=== PATIENT | male | born 1975 | race Two or more races ===

== ENCOUNTER 2024-09-18 22:33 | Inpatient (IN) | payer MEDICAID, SELFPAY ==
[2024-09-18 22:40] VITALS: BMI 32.2
--- NOTE | 2024-09-18 23:08 | PC.NURSE ---
WHILE TRIAGING PT, PT STATES NUMBNESS TO R HAND AND MOUTH AND STATES WHEN HE WALKS FAST HE SEEMS TO NANETTE TO THE RT. RENETTA. SCREW DOWN EQUAL, TONGUE MIDLINE, NO FACIAL DROOP SPEACH NORMAL. ALL STARTED YESTERDAY. DR BECKMAN CAME TO TRIAGE AN ASSESSED PT. PER DR BECKMAN NO STROKE ALERT CALLED. 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 CT ORDERED.
[2024-09-18 23:18] VITALS: BP 230/159; PULSE 94; RESP 18; TEMP 36.9; O2SAT 98
--- NOTE | 2024-09-18 23:18 | XR_ITS ---
Examination: CTA carotids with intravenous contrast CTA brain, head with intravenous contrast. 2-D sagittal, coronal reconstructions. 3-D reconstructions. Exam date and time: September 19, 2024 at 0132 hours INDICATIONS: Stroke alert, onset focal neurologic deficit headache today CTDI: vol (mGy) 11.4 DLP: (mGycm) 469 Technique: Multiple CTA axial brain, head carotid images post intravenous contrast injection 75 cc, [id number]. 2-D sagittal, coronal reconstructions. 3-D reconstructions, 3-D post processing including vascular maximum intensity projection images. Low dose protocols were performed. One or more of the following dose reduction techniques were used; automated exposure control, adjustment of the mA and/or KV according to patient size, use of iterative reconstruction technique. Findings: 9 mm left thyroid nodule No significant common carotid carotid bifurcation or internal carotid artery stenoses Dominant right vertebral artery with no significant neck arterial stenoses 90% stenosis M1 segment left middle cerebral artery, no cerebral large vessel arterial occlusions or thrombus IMPRESSION: No significant neck arterial stenoses 90% stenosis M1 segment left middle cerebral artery
--- NOTE | 2024-09-18 23:18 | XR_ITS ---
Examination: CT brain head without contrast. 2-D sagittal coronal reconstructions Date and time of exam:September 18, 2024, 2344 hours INDICATIONS: Stroke alert, onset focal neurologic deficit today CTDI: vol (mGy):50.1 DLP: (mGycm):980 Technique: Multiple CT axial sections of the brain have been obtained, 5 mm slice thickness. Contrast has not been administered. 2-D sagittal, coronal reconstructions have been obtained Low dose protocols were performed. One or more of the following dose reduction techniques were used; automated exposure control, adjustment of the mA and/or KV according to patient size, use of iterative reconstruction technique. Findings: No significant ventricular enlargement. Old appearing infarcts left basal ganglia and left occipital lobe Axial image 20 and 21 demonstrates small hyperdense areas in the left occipital lobe suspicious for acute hemorrhage No mass effect or midline shift Basal cisterns are not remarkable. Fourth ventricle is midline. Cranial vault intact. Impression: Axial images 20 and 21 demonstrates small hyperdense areas in the left occipital lobe suspicious for acute hemorrhage
--- NOTE | 2024-09-18 23:18 | EKG_ITS ---
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
--- NOTE | 2024-09-18 23:19 | XR_ITS ---
Examination: PA chest single view TECHNIQUE: Upright PA chest single view Date and time: September 18, 2024, 2324 hours INDICATIONS: High blood pressure, clinical diagnosis CVA FINDINGS: Mild prominence left ventricle Mild ectasia of thoracic aorta. No pneumonia or pulmonary edema. The osseous structures are intact IMPRESSION: Mild prominence left ventricle No pneumonia or pulmonary edema
--- NOTE | 2024-09-18 23:47 | PD.EDNEURO ---
Neuro Symptoms Deficit-RME/HPI General Chief Complaint: Neuro Symptoms/Deficit Stated Complaint: HIGH BP Time Seen by Provider: 09/18/24 23:17 Arrival date/time: 09/18/24 22:33 RME / HPI RME / HPI Narrative: Dr. Bowen?s Main ED Evaluation:? 49 y/o male with Hx of TIA presents to ED c/o tingling and numbness to the right hand and difficulty in pronunciation of words x 2 days. Patient initially came in due to elevated BP of over 200 systolic at home and tingling of the mouth. Patient also reports experiencing right hand numbness approximately 1 month ago but did not seek medical attention due to symptoms resolving after half the day. At this time, patient only reports a mild headache, right hand weakness, and some difficulty walking. Denies visual changes, tingling and numbness in lower extremities, and numbness to the face. Patient also denies fever, chills, sweats, chest pain, and shortness of breath. No other concerns or complaint expressed at this time. Related Data Allergies Allergy/AdvReac Type Severity Reaction Status Date / Time No Known Allergies Allergy Verified 09/18/24 22:56 Review of Systems Review of Systems Systems Reviewed: All systems reviewed, normal except as documented Past Medical History Past Medical History NEUROLOGIC: Positive Transient Ischemic Attacks (TIA) Social History SMOKING STATUS: Never smoker ED Exam Narrative Physical exam: GENERAL APPEARANCE: alert and oriented x 4, well-developed, well-nourished, no acute distress, speech is slowed, but no dysarthria, no aphasia. Walking slowly. VITALS: All vitals were reviewed and the pulse ox is 97% on room air, which is normal according to my interpretation. HEENT: Normocephalic, atraumatic; pupils equal, round, reactive to light; EOMI, no visual deficits; mucous membranes pink, moist; oropharynx clear NECK: Supple LUNGS: CTABL; no wheezes, no rales, no rhonchi HEART: Regular rate, regular rhythm; normal S1, S2; no murmurs ABDOMEN: non distended; normal BS; soft, no tenderness, no guarding, no rebound; no masses, no organomegaly, no hernia BACK: no CVA tenderness EXTREMITIES: atraumatic; no edema NEUROLOGIC: awake; alert and oriented x4; cranial nerves II-XII grossly intact; no motor or sensory deficits, no pronator drift, no intention tremor, steccato speech, dysmetria or dysdiadochokinesia PSYCHIATRIC: appropriate mood and affect SKIN: warm, dry, normal color; no rashes Course Quality Measures Suspected type of Stroke: Acute Ischemic Last known well (date): 09/18/24 Last know well: unknown Tenecteplase given: Reason(s) TPA not given: Stroke severity too mild (non-disabling) not given stroke Orders Category Date Time Status Bedside Blood Glucose NOW Care 09/18/24 23:18 Active COVID-19 Screening Questionnaire NOW Care 09/19/24 08:12 Active Double Cut Off Saw Operator NOW Care 09/18/24 23:18 Active Continuous Pulse Oximetry NOW Care 09/18/24 23:18 Completed Decision to Admit X1 Care 09/19/24 08:12 Completed EKG (ED ONLY) *Do not use* NOW Care 09/18/24 23:18 Completed In and Out Catheter NEEDED Care 09/18/24 23:18 Active Insert IV NOW Care 09/18/24 23:18 Active MRI Screening NOW Care 09/19/24 01:52 Active NIH Stroke Scale PRN Care 09/18/24 23:18 Active NPO NOW Care 09/18/24 23:18 Active Nurse Swallow Screen x1 Care 09/18/24 23:18 Active Consult to Neurology / Tele-Neurology Routine Cons 09/18/24 23:[address] angio stroke protocol Stat Exams 09/18/24 23:[address] stroke protocol Stat Exams 09/18/24 23:18 Completed EKG (ED Only) Stat Exams 09/18/24 23:18 Draft MR head/brain wo/w con Stat Exams 09/19/24 Completed XR chest 1V portable Stat Exams 09/18/24 23:19 Completed Alcohol, Blood Medical Stat Lab 09/18/24 23:29 Completed B-Type Natriuretic Peptide Stat Lab 09/18/24 23:29 Completed CBC Stat Lab 09/18/24 23:29 Completed Comprehensive Metabolic Panel Stat Lab 09/18/24 23:29 Completed Drug Screen,Urine Stat Lab 09/19/24 01:24 Completed Magnesium Stat Lab 09/18/24 23:29 Completed Partial Thromboplastin Time Stat Lab 09/18/24 23:29 Completed Prothrombin Time with INR Stat Lab 09/18/24 23:29 Completed Troponin I Stat Lab 09/18/24 23:29 Completed Urinalysis Stat Lab 09/19/24 01:24 Completed Nicardipine/Ns 20Mg Ivpb [Cardene Ivpb] Med 09/19/24 00:13 Discontinued 20 mg in 200 ml IV 5 mg/hr Vital Signs Vital signs: Vital Signs Temperature 98.5 F 09/18/24 23:18 Pulse Rate 94 09/18/24 23:18 Respiratory Rate 18 09/18/24 23:18 Blood Pressure 230/159 H 09/18/24 23:18 Pulse Oximetry (%) 98 09/18/24 23:18 Oxygen Delivery Method Room Air 09/18/24 23:18 Neuro Symptoms / Deficit MDM Narrative MDM Narrative:: Scribe Attestation: I, Leidy Plaza, am scribing for and in the presence of Dr. Bowen. 0000: Teleneurologist made aware of the patient?s HPI, PMHx, lab and/or radiology results. Treatment plan was discussed. Will assess patient. 0013: Teleneurologist called and reports patient had a CVA. She cannot properly score patient due to language barrier, but patient states he has difficulty in finding his words. It appears that patient had a small stroke with hemorrhagic conversion and is not a candidate for tPA. 0113: Spoke with Dr. Hogue, Neurosurgeon from [facility], and sent him the images. Will call back after reviewing of recording. 0118: There?s been a delay in getting patient?s CTA and are only now having it performed. 0149: Dr. Hogue called back after reviewing the images of Brain CT and he disagrees. There is no bleed. Advises MRI in the morning and if there is a bleed he will accept patient for transfer. 0600: Care of the patient turned over to Dr. Talbert pending MRI brain. Dr. Hogue said that if there is a bleed he will except the patient. Otherwise patient can be admitted here at [place]. Patient data External records reviewed:: [facility] previous records (No prior ED records available for review.) Clinical information provided by:: patient Social determinants that could affect healthcare access:: none Patient has the following chronic illnesses:: None reported How is presenting disease/condition affected by chronic disease/condition?: no chronic disease Evaluation data The following diagnostics were reviewed and interpreted by me:: lab results, radiology exam(s) and EKG tracing(s) Lab and/or radiology exams considered but not ordered:: None Interpretation Summary: RADIOLOGY Head/Neck CTA: Pending official radiology report. Head CT: Patient: FABI RUFFIN. Record#: [id number] Birthdate: 1975 Age/Sex: 49 / M Location: [facility] Attending Dr: Ordering Physician: Renaldo Bowen MD Date of Service: 09/18/24 Procedure(s): CT stroke protocol Accession Number(s): [id number] cc: Wilder Gallego MD; NO PRIMARY/FAMILY,PHYSICIAN; Renaldo Bowen MD~ Examination: CT brain head without contrast. 2-D sagittal coronal reconstructions Date and time of exam:September 18, 2024, 2344 hours INDICATIONS: Stroke alert, onset focal neurologic deficit today CTDI: vol (mGy):50.1 DLP: (mGycm):980 Technique: Multiple CT axial sections of the brain have been obtained, 5 mm slice thickness. Contrast has not been administered. 2-D sagittal, coronal reconstructions have been obtained Low dose protocols were performed. One or more of the following dose reduction techniques were used; automated exposure control, adjustment of the mA and/or KV according to patient size, use of iterative reconstruction technique. Findings: No significant ventricular enlargement. Old appearing infarcts left basal ganglia and left occipital lobe Axial image 20 and 21 demonstrates small hyperdense areas in the left occipital lobe suspicious for acute hemorrhage No mass effect or midline shift Basal cisterns are not remarkable. Fourth ventricle is midline. Cranial vault intact. Impression: Axial images 20 and 21 demonstrates small hyperdense areas in the left occipital lobe suspicious for acute hemorrhage Dictated By: Wilder Gallego MD Signed By: <Electronically signed by Wilder Gallego MD in OV> 09/18/24 2353 Chest X-Ray: Patient: FABI DOUGLASS Record#: [id number] Birthdate: 1975 Age/Sex: 49 / M Location: [facility] Attending Dr: Ordering Physician: Renaldo Bowen MD Date of Service: 09/18/24 Procedure(s): XR chest 1V portable Accession Number(s): [id number] cc: Wilder Gallego MD; Renaldo Bowen MD~ Examination: PA chest single view TECHNIQUE: Upright PA chest single view Date and time: September 18, 2024, 2324 hours INDICATIONS: High blood pressure, clinical diagnosis CVA FINDINGS: Mild prominence left ventricle Mild ectasia of thoracic aorta. No pneumonia or pulmonary edema. The osseous structures are intact IMPRESSION: Mild prominence left ventricle No pneumonia or pulmonary edema Dictated By: Wilder Gallego MD Signed By: <Electronically signed by Wilder Gallego MD in OV> 09/18/24 2330 LABS Hematology: Hgb 17, [place] # 1.1, Immature Gran # 0.02. Chemistry: Glucose 279, Troponin I 0.084, BNP 264. Urine: Protein 1+, Glucose 4+. Toxicology: Negative. Medications / Prescriptions Medications or Prescriptions considered but not ordered:: None Medication administrations:: Medication Administration History Acetaminophen (Acetaminophen 325 Mg Tablet) 650 mg PO Q6H PRN PRN Reason: Fever >100.3 or pain 1-3 Stop: 10/19/24 08:33 Amlodipine Besylate (Amlodipine Besylate 5 Mg Tablet) 10 mg PO QDAY MARTI Stop: 10/19/24 11:29 Last Admin: 09/19/24 12:30 Dose: 10 mg Documented By: BENITA Atorvastatin Calcium (Atorvastatin Calcium 20 Mg Tablet) 40 mg PO HS MARTI Stop: 10/19/24 20:59 Last Admin: 09/19/24 20:12 Dose: 40 mg Documented By: BECCA Clopidogrel Bisulfate (Clopidogrel Bisulfate 75 Mg Tablet) 75 mg PO QDAY [facility] Stop: 10/19/24 11:59 Last Admin: 09/19/24 12:30 Dose: 75 mg Documented By: BENITA Dextrose (Dextrose 50%-Water Inj 50 Ml Syringe) 25 ml IV Q15MIN PRN PRN Reason: BG 50-70 responsive npo pt Stop: 10/19/24 16:13 Dextrose (Dextrose 50%-Water Inj 50 Ml Syringe) 50 ml IV Q15MIN PRN PRN Reason: BG <50 OR BG <70 & pt unresponsive Stop: 10/19/24 16:13 Enoxaparin Sodium (Enoxaparin Sod Inj 40 Mg/0.4 Ml Syringe) 40 mg SC QDAY [facility] Stop: 10/04/24 08:59 Glucagon (Glucagon Inj 1 Mg Vial) 1 mg IM Q15MIN PRN PRN Reason: BG <70, and no IV access Insulin Glargine (Insulin Glargine (Lantus) 5 Unit/0.05 Ml (Per 5 Units)) 15 unit SC [facility] Stop: 10/19/24 20:59 Last Admin: 09/19/24 20:16 Dose: 15 unit Documented By: BECCA Co-signed By: ENMANUEL Insulin Human Lispro (Insulin Lispro (Admelog) 1 Unit/0.01 Ml Unit) 0 unit SC [facility]; Protocol Stop: 10/19/24 16:59 Last Admin: 09/19/24 18:21 Dose: 3 unit Documented By: BENITA Co-signed By: EMILIANO Labetalol HCl (Labetalol Inj 5 Mg/Ml Vial 20 Ml) 10 mg IVP Q4H PRN PRN Reason: If SBP>170 or DBP>100 Stop: 10/19/24 16:09 Lisinopril (Lisinopril 2.5 Mg Tablet) 20 mg PO QDAY [facility] Stop: 10/20/24 08:59 Ondansetron HCl (Ondansetron Inj 2 Mg/Ml Inj 2 Ml) 4 mg IVP Q6H PRN; Protocol PRN Reason: NAUSEA OR VOMITING Stop: 10/19/24 08:33 Sennosides (Senna Tablet) 1 tab PO QDAY PRN; Protocol PRN Reason: constipation Stop: 10/19/24 08:33 Discontinued Medications Aspirin (Aspirin Ec 81 Mg Tabec) 81 mg PO QDAY MARTI Stop: 10/19/24 11:59 Last Admin: 09/19/24 12:30 Dose: 81 mg Documented By: BENITA Nicardipine/Sodium Chloride (Cardene Ivpb) 20 mg in 200 mls @ 50 mls/hr IV .Q4H PRN; Protocol PRN Reason: PER PROTOCOL Stop: 10/19/24 00:12 Last Titration: 09/19/24 08:14 Dose: 3 mg/hr, 30 mls/hr Documented By: Titration: 09/19/24 07:12 Dose: 3 mg/hr, 30 mls/hr Documented By: Admin: 09/19/24 02:48 Dose: 3 mg/hr, 30 mls/hr Documented By: Titration: 09/19/24 02:41 Dose: Infused Documented By: Titration: 09/19/24 02:05 Dose: 15 mg/hr, 150 mls/hr Documented By: Titration: 09/19/24 01:45 Dose: 12.5 mg/hr, 125 mls/hr Documented By: Titration: 09/19/24 01:10 Dose: 10 mg/hr, 100 mls/hr Documented By: Titration: 09/19/24 01:05 Dose: 7.5 mg/hr, 75 mls/hr Documented By: Admin: 09/19/24 01:00 Dose: 5 mg/hr, 50 mls/hr Documented By: ADDY Labetalol HCl (Labetalol Inj 5 Mg/Ml Vial 20 Ml) 10 mg IVP Q2HR PRN PRN Reason: If SBP>170 or DBP>100, hold if Stop: 10/19/24 11:59 Last Admin: 09/19/24 13:18 Dose: 10 mg Documented By: BENITA Labetalol HCl (Labetalol Inj 5 Mg/Ml Vial 20 Ml) 10 mg IVP Q2HR PRN PRN Reason: If SBP>220 or DBP>120 Stop: 10/19/24 11:59 Labetalol HCl (Labetalol Inj 5 Mg/Ml Vial 20 Ml) 10 mg IVP Q2HR PRN PRN Reason: If SBP>170 or DBP>100 Stop: 10/19/24 11:59 Last Admin: 09/19/24 18:20 Dose: 10 mg Documented By: BENITA Labetalol HCl (Labetalol Inj 5 Mg/Ml Vial 20 Ml) 10 mg IVP X1 ONE Stop: 09/19/24 20:05 Last Admin: 09/19/24 20:07 Dose: 10 mg Documented By: BECCA Lisinopril (Lisinopril 2.5 Mg Tablet) 10 mg PO QDAY MARTI Stop: 10/20/24 08:59 Lisinopril (Lisinopril 2.5 Mg Tablet) 10 mg PO X1 ONE Stop: 09/19/24 20:37 Last Admin: 09/19/24 20:41 Dose: 10 mg Documented By: BECCA Lisinopril (Lisinopril 2.5 Mg Tablet) 10 mg PO X1 ONE Stop: 09/19/24 22:04 Last Admin: 09/19/24 22:10 Dose: 10 mg Documented By: VAUGHN See above if any Consultations Consultation(s) initiated? (list below): Yes Diagnosis Neuro Differential Diagnosis: delirium, subarachnoid hemorrhage, peripheral neuropathy, cerebrovascular accident and transient cerebral ischemia Most likely diagnosis given after review of the tests above:: See clinical impression below Admission Indicated Admission indicated?: not indicated Explain why admission is indicated or not indicated:: Pending MRI. Admission Request Was there a request for admission?: No Disposition Plan Disposition Plan: other (specify) (Pending MRI. Signed out to Dr. Talbert.) Critical Care Time Critical Care Time Critical Care Time: Yes Total Critical Care Time (min.): 40 Attestation: The high probability of sudden, clinically significant deterioration in the patient?s condition required the highest level of my preparedness to intervene urgently. The services I provided to this patient were to treat and/or prevent clinically significant deterioration. Services included the following: chart data review, reviewing nursing notes and/or old charts, documentation time, information resource consultant collaboration regarding findings and treatment options, medication orders and management, direct patient care, vital sign assessments and ordering, interpreting and reviewing diagnostic studies and lab tests. Aggregate critical care time includes only time during which I was engaged in work directly related to the patient?s care, as described above, whether at bedside or elsewhere in the Emergency Department. It did not include time spent performing other reported procedures or the services of residents, students, nurses or physician assistants. Discharge Plan Plan Patient Disposition: Admit Acute Care w/in Hospital Problem List Clinical Impression: Cerebrovascular accident
[2024-09-19] VITALS (36 sets, daily range): BP systolic 138–207; BP diastolic 03–129; PULSE 77–113; RESP 18–98; TEMP 36.7–37.5; O2SAT 94–99
--- NOTE | 2024-09-19 | XR_ITS ---
Examination: MRI of brain without intravenous contrast. MRI brain with intravenous contrast. Date and time of exam:September 19, 2024 0701 hours INDICATIONS: Stroke alert last night, numbness in the right hand difficulty in advancing words 2 days, high blood pressure Technique: Multiple axial and sagittal images of the brain to been obtained. Siemens high-resolution 1.52 Vanita short bore scanner utilized. Sagittal sections, T1 weighted images, TR 500, TE 14, are performed. Axial sections proton-density and T2-weighted images have been obtained. Inversion recovery axial images, TR 9260, TE 111, TR 2500. Diffusion weighted images, axial sections, TR 4800, TE 128, B value 1000. Axial sections, ADC map, TR 4800, TE 128. Axial and coronal images were also obtained post 20 cc gadolinium administered intravenously. Findings:: Enlargement of the sella turcica is not present. The optic chiasm and infundibular stalk are not remarkable. There is no localized enlargement of the medulla or vlad. Fourth ventricle and cerebellar tonsils appear normal in position. No subacute area of hemorrhage density is seen. Fourth ventricle is midline. Mass in the cerebellopontine angle region is not evident. 7th and 8th nerve complexes exhibit symmetry Globes are symmetrical Orbital musculature including medial lateral rectus muscles do not exhibit abnormality Increased white matter signal is significant Effacement of the cortical sulcal markings is not identified. Mass effect upon the ventricular system is not identified. Diffusion-weighted images demonstrate foci of restricted diffusion in the left occipital lobe, left caudate nucleus, left parietal lobe Contrast images demonstrate foci of enhancement in the left occipital lobe and small areas left parietal lobe Impression: Multiple acute infarcts in the left occipital lobe, left caudate nucleus, left parietal lobe
[2024-09-19 00:11] LABS: Basophils # (Auto) 0.1 Thou/mm3 (0.0-0.2); Basophils % (Auto) 1 % (0-2.5); Eosinophils # (Auto) 0.4 Thou/mm3 (0.0-0.5); Eosinophils % (Auto) 4 % (0-10); Hematocrit 48.1 % (41.0-53.0); Immature Granulocytes % (Auto) 0 % (0-0); Immature Granulocytes Auto 0.02 Thou/mm3 (0.00-0.00); Lymphocytes # (Auto) 3.1 Thou/mm3 (1.0-4.8); Lymphocytes % (Auto) 31 % (10-50); Mean Corpuscular HGB Conc 35.3 g/dl (31.0-37.0); Mean Corpuscular Hemoglobin 30.7 pg (25.0-35.0); Mean Corpuscular Volume 87 fL (80-100); Monocytes # (Auto) 1.1 Thou/mm3 (0.0-0.8); Monocytes % (Auto) 11 % (0-12); Neutrophils # (Auto) 5.3 Thou/mm3 (1.8-7.7); Neutrophils % (Auto) 53 % (37-80); Nucleated Red Blood Cell % 0 /100 WBC (0); Platelet Count 281 Thou/mm3 (140-440); RDW Standard Deviation 38.2 fL (35.1-43.9); Red Blood Count 5.53 Miln/mm3 (4.50-5.90)
[2024-09-19 00:19] LABS: B-Type Natriuretic Peptide 264 pg/mL (0-100)
[2024-09-19 00:22] LABS: Alanine Aminotransferase 26 U/L (10-49); Albumin, Serum 4.3 gm/dL (3.5-5.0); Albumin/Globulin Ratio 1.4 (1.2-2.2); Alcohol, Blood Medical < 3.0 mg/dL (0-10.0); Alkaline Phosphatase 89 U/L (46-116); Anion Gap 10 (7-16); Aspartate Amino Transferase 22 U/L (0-34); BUN/Creatinine Ratio 12 Ratio (12-20); Bilirubin,Total 0.5 mg/dL (0.3-1.2); Blood Urea Nitrogen 13 mg/dL (9-23); Calcium 9.1 mg/dL (8.3-10.6); Calcium (Corrected) 9.1 mg/dL (8.5-10.1); Chloride 103 mMol/L (98-107); Creatinine (Component) 1.1 mg/dL (0.6-1.3); Estimated Creatinine Clearance 94.6 mL/min (>60); Glucose 279 mg/dL (74-106); Magnesium 1.8 mg/dL (1.6-2.6); Osmolality,Calculated 289 (275-295); Potassium 3.5 mMol/L (3.4-5.1); Sodium 140 mMol/L (136-145); Total Protein 7.3 gm/dL (5.7-8.2); eGFR > 60 See Note
[2024-09-19 00:43] LABS: Troponin I 0.084 ng/mL (0.0-0.045)
--- NOTE | 2024-09-19 00:51 | PD.TNEURO ---
Tele Neuro Consultation Consultation Date 09/19/24 Most Recent Vital Signs Last Vital Signs Temp 98.6 F 09/19/24 00:20 Pulse 97 09/19/24 00:38 Resp 18 09/19/24 00:20 BP 204/126 H 09/19/24 00:20 Pulse Ox 97 09/19/24 00:20 O2 Del Method Room Air 09/19/24 00:20 Laboratory-Coagulation Panel PT 11.0 Seconds (9.0-12.2) 09/18/24 23:29 INR 1.0 (0.9-1.3) 09/18/24 23:29 APTT 26.0 Seconds (22.0-36.0) 09/18/24 23:29 Consultation Narrative [facility] Tele[facility]urology Consult Services Date of :???1975 Date of Service:???09/18/2024 23:27:13 Diagnosis:?R20.0 - Anesthesia of skin Impression: This is a 49 year old man with history of hypertension here with right hand numbness and difficulty speaking, starting 2 days prior to presentation, noted to have an area of hyperdensity on CT, interpreted as hemorrhage by radiology. The patient is not a candidate for IV thrombolytics given CT findings and last known well. CTA head and neck is pending. Recommend MRI brain with and without contrast/ MRV when/ if feasible Recommendation: Diagnostic Studies: ?CTA head and neck with contrast Laboratory Studies:? INR/PT ? aPTT? CBC Medications:? Hold?antiplatelet?therapy/NSAIDS/Anticoagulation Nursing Recommendations: ? Telemetry, IV Fluids?Avoid dextrose containing fluids, Maintain euglycemia ? Head of bed 30 degrees Consultations: ? Recommend Speech therapy if failed dysphagia screen ? Physical therapy/Occupational therapy DVT Prophylaxis: ? SCDs Disposition: ? Neurology will Follow Additional Recommendation: SBP<160 Metrics: Last Known Well: Unknown Dispatch Time: 09/18/2024 23:27:13 Arrival Time: 09/18/2024 22:33:00 Initial Response Time: 09/18/2024 23:39:54Symptoms: right hand numbness difficulty speaking. Initial patient interaction: 09/18/2024 23:45:00 NIHSS Assessment Completed: 09/18/2024 23:54:00Patient is not a candidate for Thrombolytic. Thrombolytic Medical Decision: 09/18/2024 23:54:00Patient was not deemed candidate for Thrombolytic because of following reasons: LKW outside 4.[address] Head: I personally reviewed all the CT images that were available to me and it showed: area hypodensity left occipital region, with an adjacent area of hyperdensity, radiology interpreted this as possible hemorrhage Primary Provider Notified of Diagnostic Impression and Management Plan on: 09/19/2024 00:17:58 History of Present Illness:Patient is a 49 year old Male. Patient was brought by private transportation with symptoms of right hand numbness difficulty speaking. This is a 49 year old man with history of hypertension here with right hand numbness and difficulty speaking, starting 2 days prior to presentation. The patient is not on anticoagulation. There was no clear precipitant and no clear exacerbating or alleviating factors Past Medical History: ?Hypertension Other PMH:? hypertension Medications: No Anticoagulant use? No Antiplatelet use Reviewed EMR for current medications Allergies:? Reviewed Social History: Drug Use: No Family History: There is no family history of premature cerebrovascular disease pertinent to this consultation ROS : 14 Points Review of Systems was performed and was negative except mentioned in HPI. Past Surgical History: There Is No Surgical History Contributory To Today?s Visit Examination: BP(230/159),?Pulse(94),?Blood Glucose(247) 1A: Level of Consciousness - Alert; keenly responsive?+ 0 1B: Ask Month and Age - Both Questions Right?+ 0 1C: Blink Eyes & Squeeze Hands - Performs Both Tasks?+ 0 2: Test Horizontal Extraocular Movements - Normal?+ 0 3: Test Visual Frias - No Visual Loss?+ 0 4: Test Facial Palsy (Use Grimace if Obtunded) - Normal symmetry?+ 0 5A: Test Left Arm Motor Drift - No Drift for 10 Seconds?+ 0 5B: Test Right Arm Motor Drift - No Drift for 10 Seconds?+ 0 6A: Test Left Leg Motor Drift - No Drift for 5 Seconds?+ 0 6B: Test Right Leg Motor Drift - Drift, but doesn't hit bed?+ 1 7: Test Limb Ataxia (FNF/Heel-Aponte) - No Ataxia?+ 0 8: Test Sensation - Normal; No sensory loss?+ 0 9: Test Language/Aphasia - Normal; No aphasia?+ 0 10: Test Dysarthria - Normal?+ 0 11: Test Extinction/Inattention - No abnormality?+ 0 NIHSS Score:?1 ICH Score: 0 NIHSS Text :?subtle RLE drift; had complained of right hand numbness, able to sense light touch equally on exam; stated he had trouble speaking- was able to name items- Helio Coma Score:13-15 (0) Age >= 80:No (0) ICH volume >= 30mL:No (0) Intraventricular hemorrhage:No (0) Infratentorial origin of hemorrhage:No (0) Pre-Morbid Modified Singh Scale:0 Points = No symptoms at all This consult was conducted in real time using interactive audio and video technology. Patient was informed of the technology being used for this visit and agreed to proceed. Patient located in hospital and provider located at home/office setting. Due to the immediate potential for life-threatening deterioration due to underlying acute neurologic illness, I spent 44 minutes providing critical care. This time includes time for face to face visit via telemedicine, review of medical records, imaging studies and discussion of findings with providers, the patient and/or family. Dr Lucia Valentino [facility] For Inpatient follow-up with [facility] physician please call [facility] at . As we are not an outpatient service for any post hospital discharge needs please contact the hospital for assistance. If you have any questions for the [facility] physicians or need to reconsult for clinical or diagnostic changes please contact us via [facility] at .
[2024-09-19] MEDS: NICARDIPINE/NS 20MG IVPB 20 MG/200 ML BAG 50 MG IV (01:00)
[2024-09-19 01:35] LABS: Collection Type, Urine Clean Catch
--- NOTE | 2024-09-19 01:41 | PC.NURSE ---
pt brought back from ct at this time.
[2024-09-19 01:44] LABS: Bilirubin,Urine Negative (Negative); Blood,Urine Negative (Negative); Clarity,Urine Clear (Clear/Hazy); Color,Urine Lt-Yellow (Lt Yel-Yel); Glucose, Urine 4+ (Negative); Ketones,Urine Negative (Negative); Leukocyte Esterase,Urine Negative (Negative); Nitrite,Urine Negative (Negative); PH,Urine 6.5 (5.0-7.0); Protein,Urine 1+ (Neg - Trace); RBC,Urine < 1 /hpf (0-3); Squamous Epithelial Cell,Urine 1 /hpf (0-5); Urobilinogen,Urine Negative mg/dL (0.0-1.0); WBC,Urine 2 /hpf (0-5)
[2024-09-19 01:58] LABS: Amphetamine/Methamp Scrn,U Negative (Negative); Barbiturate Screen,Urine Negative (Negative); Benzodiazepines Screen,Urine Negative (Negative); Benzoylecgonine Screen, Ur Negative (Negative); Fentanyl Screen,Urine Negative (Negative); Opiate Screen,Urine Negative (Negative); THC Screen,Urine Negative (Negative)
--- NOTE | 2024-09-19 02:31 | PRELIM_ITS ---
CT angiogram of the head and neck with intravenous contrast (axial sections with sagittal and coronal reformats). September 19, 2024 0132 hours Clinical History: Focal neuro deficit, stroke suspected Comparison: None Findings: There is a classic three-vessel aortic arch configuration. Atherosclerotic plaque along the cervical carotid circulation results in less than 50% stenosis per NASCET criteria which is [id number]. Cervical right vertebral artery is dominant. The cervical vertebral arteries are intact without flow-limiting stenosis. There is no aneurysm or dissection of the cervical carotid or cervical vertebral circulation. The intracranial vertebral arteries are intact without flow-limiting stenosis. The basilar artery is intact without flow-limiting stenosis. The posterior cerebral arteries are intact without flow-limiting stenosis. The internal carotid arteries are intact without flow-limiting stenosis. There is severe flow-limiting stenosis within the M1 segment of the left MCA. The anterior cerebral arteries and right middle cerebral artery are intact without flow- limiting stenosis. There is no intracranial aneurysm or AVM. Impression: No flow-limiting stenosis, aneurysm or dissection of the cervical carotid or cervical vertebral circulation. 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 Otherwise no intracranial major proximal vessel occlusion, flow-limiting stenosis, aneurysm or AVM. Consider CT perfusion study for further evaluation. Discussion Details: Results verbally communicated to : Dr. Bowen at 02:22 AM 09/19/2024 Report Electronically Signed By: Micah Catherine 09/19/2024 2:30:44 AM [EST]
[2024-09-19] MEDS: NICARDIPINE/NS 20MG IVPB 20 MG/200 ML BAG 30 MG IV (02:48)
--- NOTE | 2024-09-19 06:44 | EDNOTE_ITS ---
Emergency Room Addendum Addendum Narrative: 0600: Care assumed from Dr. Bowen, the previous shift emergency physician. Past medical, surgical, social and family history reviewed. Vitals and home medications reviewed. I will assume the care of the patient at this time, pending MRI and final disposition. Please refer to the emergency department record for history and examination from initial visit.?The following addendum documentation note is intended to reflect any pending information, findings, or radiology results not included in the patient?s initial chart. 0805: We reviewed all the results, analysis, and treatment plans. Patient is amenable to admission. 0808: I spoke with resident Dr. Berg working with Dr. Albarran. Discussed patients PMHx, HPI, ED course, exam findings, labs, and radiology results. The hospitalist agree to accept the patient for admission. RADIOLOGY Ordering Physician: Renaldo Bowen MD Date of Service: 09/19/24 Procedure(s): MR head/brain wo/w con Accession Number(s): [id number] cc: Wilder Gallego MD; NO PRIMARY/FAMILY,PHYSICIAN; Renaldo Bowen MD~ Examination: MRI of brain without intravenous contrast. MRI brain with intravenous contrast. Date and time of exam:September 19, 2024 0701 hours INDICATIONS: Stroke alert last night, numbness in the right hand difficulty in advancing words 2 days, high blood pressure Technique: Multiple axial and sagittal images of the brain to been obtained. Siemens high-resolution 1.52 Vanita short bore scanner utilized. Sagittal sections, T1 weighted images, TR 500, TE 14, are performed. Axial sections proton-density and T2-weighted images have been obtained. Inversion recovery axial images, TR 9260, TE 111, TR 2500. Diffusion weighted images, axial sections, TR 4800, TE 128, B value 1000. Axial sections, ADC map, TR 4800, TE 128. Axial and coronal images were also obtained post 20 cc gadolinium administered intravenously. Findings:: Enlargement of the sella turcica is not present. The optic chiasm and infundibular stalk are not remarkable. There is no localized enlargement of the medulla or vlad. Fourth ventricle and cerebellar tonsils appear normal in position. No subacute area of hemorrhage density is seen. Fourth ventricle is midline. Mass in the cerebellopontine angle region is not evident. 7th and 8th nerve complexes exhibit symmetry Globes are symmetrical Orbital musculature including medial lateral rectus muscles do not exhibit abnormality Increased white matter signal is significant Effacement of the cortical sulcal markings is not identified. Mass effect upon the ventricular system is not identified. Diffusion-weighted images demonstrate foci of restricted diffusion in the left occipital lobe, left caudate nucleus, left parietal lobe Contrast images demonstrate foci of enhancement in the left occipital lobe and small areas left parietal lobe Impression: Multiple acute infarcts in the left occipital lobe, left caudate nucleus, left parietal lobe Dictated By:Wilder Gallego MD Signed By:<Electronically signed by Wilder Gallego MD in OV>09/19/24 0759
--- NOTE | 2024-09-19 07:14 | PC.NURSE ---
Patient transport to MRI via wheelchair. Per [facility] in shop service technician, no available MRI medication IV pump for nicardipine drip. Ok per Dr Talbert to temporarily hold drip to obtain MRI imaging.
--- NOTE | 2024-09-19 08:25 | PC.NURSE ---
Ok per Dr Talbert to discontinue Nicardipine gtt, Ok for permissive HTN for patient due to +MRI for stroke.
--- NOTE | 2024-09-19 08:39 | ECHO_ITS ---
Transthoracic Echo Report Ht (in): 69 Wt (lb): 220 Exam Location: Echo Lab Status: Inpatient Policy Issue Clerk: Yocasta Biswas Indications: Procedure Performed: BP: 189 / 119 HR: 104 Technical Quality: Technically Difficult Study MEASUREMENTS (Male / Female) Normal Values 2D ECHO LV Diastolic Diameter PLAX 4.4 cm 4.2 - 5.9 / 3.9 - 5.3 cm LV Systolic Diameter PLAX 3.6 cm IVS Diastolic Thickness 1.0 cm 0.6 - 1.0 / 0.6 - 0.9 cm LVPW Diastolic Thickness 0.8 cm 0.6 - 1.0 / 0.6 - 0.9 cm LV Relative Wall Thickness 0.4 LVOT Diameter 2.4 cm LA Volume Index 31.1 cm?/m? 16 - 28 cm?/m? Ascending Aorta Diameter 3.3 cm DOPPLER AV Peak Velocity 130.0 cm/s AV Peak Gradient 6.8 mmHg LVOT Peak Velocity 72.8 cm/s LVOT Peak Gradient 2.1 mmHg AV Area Cont Eq pk 2.5 cm? MV Area PHT 4.2 cm? Mitral E Point Velocity 82.0 cm/s Mitral A Point Velocity 87.8 cm/s Mitral E to A Ratio 0.9 LV E' Lateral Velocity 7.7 cm/s Mitral E to LV E' Lateral Ratio 10.6 LV E' Septal Velocity 5.1 cm/s Mitral E to LV E' Septal Ratio 16.0 PV Peak Velocity 105.0 cm/s PV Peak Gradient 4.4 mmHg FINDINGS Left Ventricle Normal left ventricular size and wall thickness. Global left ventricular systolic function is moderately decreased with an estimated EF of 35-40%. There is grade I diastolic dysfunction of the left ventricle (impaired relaxation pattern). Right Ventricle The right ventricle is normal in size. Right ventricular systolic function is mildly reduced. Left Atrium The left atrial cavity size is mildly increased. Right Atrium The right atrium is normal by two-dimensional imaging, color flow and Doppler imaging with no structural abnormalities, no thrombus formation present. Atrial Septum The interatrial septum appears normal with no evidence of a shunt. Aorta The aorta is normal by two-dimensional, color flow and Doppler interrogation. Mitral Valve The mitral valve is normal by two-dimensional, color flow and Doppler interrogation. There is no significant mitral valve regurgitation, stenosis or prolapse. Aortic Valve The aortic valve is trileaflet and normal by two-dimensional, color flow and Doppler interrogation. There is no significant aortic valve regurgitation. Tricuspid Valve The tricuspid valve is normal by two-dimensional, color flow and Doppler interrogation. There is no significant tricuspid valve regurgitation. Pulmonic Valve The pulmonic valve is not well visualized. There is no significant pulmonic valve regurgitation. Vessels The pulmonary artery appears normal. The inferior vena cava pulmonary and hepatic veins are not well visualized. Pericardium The pericardium is not well visualized. CONCLUSIONS Indications: Suspect Embolic Stroke Normal LV size and wall thickness. Estimated EF of 35-40%. Grade I diastolic dysfunction. RV systolic function is mildly reduced. KELLY is mildly increased. No pericaredial effusion. Nicky Flowers (Electronically Signed) Final Date: 20 September 2024 12:01
--- NOTE | 2024-09-19 09:36 | PC.NURSE ---
Patient has been awake, alert and oriented, ambulatory, up to us the restroom. Patient speaks setswana. Patient is able to verbalize needs. 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 Patient states he lives alone in a trailer and his neighbor brought him in to be evaluated. Patient updated with plan of admission.
--- NOTE | 2024-09-19 11:15 | PC.CC ---
Patient is a 49 year old male who presents to the Emergency Department for an acute stroke. 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 Limits of confidentiality were discussed. Patient appears to be alert and oriented to self, location and situation. Patient was pleasant and engaged in initial assessment. Patient confirmed information on demographics. Patient is currently unemployed and lives alone. Patient stated his surrogate decision maker is his friend Ethel Dick ([phone]). Patient does not currently have a primary care provider. Pharmacy of choice is [facility] on [address]. Patient states he is able to ambulate independently and is independent with his ADL's. Patient denies use of DME at home. Upon discharge patient plans to return home. vp celebrity services will follow up with any discharge needs.
--- NOTE | 2024-09-19 11:22 | PC.NURSE ---
RN reported to Pili Sanchez patient will transfer to room 258.
[2024-09-19] MEDS: amLODIPine BESYLATE 5 MG TABLET 10 MG PO (12:30)
[2024-09-19] MEDS: CLOPIDOGREL BISULFATE 75 MG TABLET PO (12:30)
[2024-09-19] MEDS: ASPIRIN EC 81 MG TABEC PO (12:30)
--- NOTE | 2024-09-19 13:06 | ESHP_ITS ---
<Statement entered by Leif Berg MD - 09/20/24 07:14> I discussed with and supervised the news internship physician involved in the care of this patient. Patient assessment and plan was discussed with entire medicine team, including my attending. I agree with the assessment and plan as documented by news internship doctor. Patient care was discussed with my attending physician Dr. Deion Berg, PGY-2 Documentation for date of: 09/19/24 HPI History of Present Illness Chief complaint: right arm weakness, difficulty finding words History of present illness: The patient is a 49-year-old male with previous medical hostiry of TIA who came into the hospital on 09/18/2024 with complaints of right hand weakness, difficulty finding words. He also reports that he measured his blood pressure and his systolic blood pressure was over 200. In the ED his blood pressure was 230/159, heart rate 94, respiratory rate 18, afebrile, saturating well on room air. Labs were significant for hemoglobin 17.0, troponin 0.084, BNP 264, glucose 279. Head CT was suspicious for acute hemorrhage. Head and neck CTA showed 90% stenosis of M1 segment left middle cerebral artery. Chest x-ray was negative for pneumonia or pulmonary edema. Teleneuro was consulted, due to the concern for intracranial bleeding patient was not started on antiplatelet therapy and was not a candidate for TNK. Dr. Hogue, neurosurgeon at [facility] was consulted, reviewed the imaging, did not recommend to transfer. MRI of the brain showed multiple acute infarcts in the left occipital lobe, left caudate nucleus, left parietal lobe. Patient denies taking testosterone. Social history: Denies smoking, alcohol use. Lives in a trailer. 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 Medications: Denies Surgeries: Denies Allergies: Denies Patient was admitted for acute stroke workup and management. Review of Systems Review of Systems Systems Reviewed: All systems reviewed, normal except as documented Past Medical History Past Medical History NEUROLOGIC: Positive Transient Ischemic Attacks (TIA) Social History SMOKING STATUS: Never smoker Exam Vital Signs Temp Pulse Resp BP Pulse Ox O2 Del Method 98.6 F 96 18 188/114 H 99 Room Air 09/19/24 10:05 09/19/24 12:30 09/19/24 10:05 09/19/24 12:30 09/19/24 12:27 09/19/24 12:27 Narrative Exam Gen: Well-developed and well-nourished. HEENT: NCAT, PERRLA, EOMI, MMM, anicteric conjunctivae. CVS: normal S1 and S2. RRR. No M/R/G. Resp: CTA B/L. No rhonchi, rales, crackles or wheezing. Abd: soft, non-tender, non-distended. BS+ in all 4 quadrants. MSK: Good ROM in BUE & BLE. No edema or rash. Neuro: Right sided facial droop.Mild weakness in RUE, strength 5/5 in all other extremities. Alert and oriented x3. Psych: appropriate mood and affect. Results: Labs 09/20/24 05:15 09/20/24 05:15 Labs: Short CBC 09/18/24 Range/Units 23:29 WBC 10.0 (3.8-10.6) Thou/mm3 Hgb 17.0 H (13.5-16.0) g/dL Hct 48.1 (41.0-53.0) % Plt Count 281 (140-440) Thou/mm3 BMP 09/18/24 23:29 Sodium 140 Potassium 3.5 Chloride 103 Carbon Dioxide 27.0 BUN 13 Creatinine 1.1 Glucose 279 H Calcium 9.1 Cardiac Enzymes 09/18/24 Range/Units 23:29 Troponin I 0.084 H* (0.0-0.045) ng/mL Liver Function 09/18/24 Range/Units 23:29 Total Bilirubin 0.5 (0.3-1.2) mg/dL AST 22 (0-34) U/L ALT 26 (10-49) U/L Alkaline Phosphatase 89 (46-116) U/L Albumin 4.3 (3.5-5.0) gm/dL Urine 09/19/24 Range/Units 01:24 Urine Color Lt-Yellow (Lt Yel-Yel) Urine Clarity Clear (Clear/Hazy) Urine pH 6.5 (5.0-7.0) Ur Specific Dudley 1.020 (1.001-1.035) Urine Protein 1+ A (Neg - Trace) Urine Glucose (UA) 4+ A (Negative) Quality Measures Quality Measures stroke Suspected type of Stroke: Acute Ischemic Last known well (date): 09/18/24 Last known well (time): 23:00 Tenecteplase given: Reason(s) Tenecteplase not given: Outside the time window not given Rehab services: PT evaluation ordered and Speech Language Pathology eval ordered VTE Prophylaxis: pharmaceutical Antithrombotic by day 2:: ordered Statin ordered: <75 y/o high intensity dose Anticoagulation ordered for A-fib or flutter (current or hx): not indicated Medications Home Medications and Allergies Allergies Allergy/AdvReac Type Severity Reaction Status Date / Time No Known Allergies Allergy Verified 09/18/24 22:56 Visit Medications Acetaminophen (Acetaminophen 325 Mg Tablet) 650 mg PO Q6H PRN PRN Reason: Fever >100.3 or pain 1-3 Stop: 10/19/24 08:33 Amlodipine Besylate (Amlodipine Besylate 5 Mg Tablet) 10 mg PO QDAY [facility] Stop: 10/19/24 11:29 Last Admin: 09/19/24 12:30 Dose: 10 mg Aspirin (Aspirin Ec 81 Mg Tabec) 81 mg PO QDAY [facility] Stop: 10/19/24 11:59 Last Admin: 09/19/24 12:30 Dose: 81 mg Atorvastatin Calcium (Atorvastatin Calcium 20 Mg Tablet) 40 mg PO HS [facility] Stop: 10/19/24 20:59 Clopidogrel Bisulfate (Clopidogrel Bisulfate 75 Mg Tablet) 75 mg PO QDAY [facility] Stop: 10/19/24 11:59 Last Admin: 09/19/24 12:30 Dose: 75 mg Labetalol HCl (Labetalol Inj 5 Mg/Ml Vial 20 Ml) 10 mg IVP Q2HR PRN PRN Reason: If SBP>170 or DBP>100, hold if Stop: 10/19/24 11:59 Ondansetron HCl (Ondansetron Inj 2 Mg/Ml Inj 2 Ml) 4 mg IVP Q6H PRN; Protocol PRN Reason: NAUSEA OR VOMITING Stop: 10/19/24 08:33 Sennosides (Senna Tablet) 1 tab PO QDAY PRN; Protocol PRN Reason: constipation Stop: 10/19/24 08:33 Discontinued Medications Nicardipine/Sodium Chloride (Cardene Ivpb) 20 mg in 200 mls @ 50 mls/hr IV .Q4H PRN; Protocol PRN Reason: PER PROTOCOL Stop: 10/19/24 00:12 Last Titration: 09/19/24 08:14 Dose: 3 mg/hr, 30 mls/hr Assessment & Plan Plan The patient is a 49-year-old male with PMH of TIA who came into the hospital on 09/18/2024 with complaints of right hand weakness, difficulty finding words. #Acute stroke #Erythrocytosis, etiology unknown Ddx:embolic vs atherothrombotic stroke Patient has been having symptoms for 2 days. Plan: - aspirin 81 mg for 21 day - plavix 75 mg for 21 day - atorvastatin 40 mg qday - HOB elevation 30 degrees - Neuro checks q4hr - PT, Speech therapy assessment - hypercoag panel - EPO, JAK2 mutation - telemetry - HbA1, TSH, lipid panel - Supervisor Rol[employer] Dr. Flowers is consulted for MARCIE #Hypertensive emergency #Elevated troponin Elevated troponin most likely in the setting of hypertensive emergency. Goal BP <180/<120 mmHg for the first hour and <160/<110 mmHg for the next 23 hours Plan: - amlodipine 10 mg qday - labetalol prn if BP >170/100 #Type 2 diabetes A1c 12% Plan: - glargine 15 u HS - ISS - hypoglycemia protocol #Obesity Could be contributing to the HTN and associated with sleep apnea. Plan: - follow-up outpatient Health maintenance: FEN: cardiac DVT prophylaxis: lovenox GI prophylaxis: none Dispo: telemetry CODE STATUS: Full code Plan of care discussed with attending Dr. Albarran, PGY-[address] Berg. Leonora Rivera MD, PGY 1. Attending Provider Attestation/Addendum I have discussed and was present for the essential components of the history, physical examination, diagnosis, and treatment plan with the resident. I agree with the patient's care as documented by the resident and amended herein by me. Omari Albarran, DO Although this document has been carefully reviewed, there may still be some phonetic and other typographical errors. These errors are purely grammatical due to imperfections in the software program and should not be construed in any way to compromise the substance of the patient's medical care during this visit.
[2024-09-19] MEDS: LABETALOL INJ 5 MG/ML VIAL 20 ML 10 MG IVP ×3 (13:18→20:07)
--- NOTE | 2024-09-19 13:34 | PCS.ST ---
No formal swallow evaluation warranted. Passed NSS. Speech/Language evaluation pending.
[2024-09-19 16:07] LABS: Glucose Estimated Average 298 mg/dL (80-131)
[2024-09-19 16:13] LABS: Troponin I 0.076 ng/mL (0.0-0.045)
--- NOTE | 2024-09-19 16:20 | PC.SS ---
Update: Patient on room air. P.O. feeds in place. Pending MARCIE. MRI completed. Neurology consulting. ICU downgrade.
[2024-09-19] MEDS: INSULIN LISPRO (AdmeLOG) 1 UNIT/0.01 ML UNIT SC (18:21)
[2024-09-19 20:02] LABS: Coccid Serology, CF CSF (UCD)* See Sep Rpt; Misc Send Out* See Sep Rpt
[2024-09-19] MEDS: ATORVASTATIN CALCIUM 20 MG TABLET 40 MG PO (20:12)
[2024-09-19] MEDS: INSULIN GLARGINE (Lantus) 5 UNIT/0.05 ML (PER 5 UNITS) 15 UNIT SC (20:16)
[2024-09-19 20:21] LABS: CSF Mononuclear 0 %; CSF Red Blood Cell 0 /cmm; CSF White Blood Cell 1 /cmm
[2024-09-19 20:29] LABS: CSF Cell Count Tube # Tube #3; CSF Color Colorless (Colorless)
[2024-09-19 20:33] LABS: Glucose,CSF 136 mg/dL (40-70); Protein Total,CSF 70 mg/dL (8-32)
[2024-09-19 20:34] LABS: CSF, Appearance Clear (Clear)
[2024-09-19 20:35] LABS: CSF Polynuclear WBC 100 %
[2024-09-19 20:36] LABS: CSF Gram Stain Alert Gram Stain Completed
[2024-09-19] MEDS: Lisinopril 2.5 MG TABLET 10 MG PO ×2 (20:41→22:10)
--- NOTE | 2024-09-19 23:32 | EVENTNT_ITS ---
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
--- NOTE | 2024-09-19 23:32 | PD.NEUROPROG ---
Documentation for date of: 09/19/24 Subjective Subjective Interval history: Seen in ICU today, no symptoms reported, [place] perioral numbness for few days and lack of coordination in the right hand to the point of not able to write. Exam - Neurology Vital Signs Temp Pulse Resp BP Pulse Ox O2 Del Method 99.5 F 88 28 H 159/94 H 96 Room Air 09/19/24 20:00 09/19/24 22:10 09/19/24 20:18 09/19/24 22:10 09/19/24 20:18 09/19/24 20:00 Narrative Exam GENERAL APPEARANCE: Well hydrated, well-nourished in no acute distress. HEENT: Normocephalic, atraumatic, extraocular movements intact. Pupils: Equal reacting to light and accommodation NECK: Supple, no JVD or bruits. CARDIOVASULAR: Heart: S1, S2 heard, regular without S3-S4 or murmur no rubs or gallops. LUNGS/CHEST: Clear to auscultation bilaterally. No rails, rhonchi, or wheezing. Normal inspection. ABDOMEN: Soft, nontender, with normal bowel sounds. No pulsatile masses. No rebound, rigidity, or guarding. Normal inspection and palpation. EXTREMITIES: Normal inspection and palpation. No edema, clubbing or cyanosis. SKIN: Warm and dry without rashes. Normal inspection. MUSCULOSKELETAL: No cervical, thoracic, lumbar or midline bony tenderness. Normal inspection. NEURO: Alert, awake and oriented x3. Cranial nerves: II through XII grossly intact. Speech and language: Normal with no dysarthria or dysphasia. Motor system: Tone and bulk: Normal: Strength: 5 out of 5 in all 4 extremities; No pronator drift noted. Deep tendon reflexes: 2+ bilaterally symmetrical. Plantar reflex: Downgoing bilaterally. Sensory system: Intact to all modalities of sensation bilaterally. Coordination: Intact to [id number] and xodp-agig-[id number] test bilaterally. No ataxia, no dysmetria, or dysdiadochokinesia noted. No intention tremors noted. Gait: Normal. No signs of meningeal irritation noted. PSYCHIATRIC: Normal mood and affect. Objective Labs 09/20/24 05:15 09/20/24 05:15 Labs: Laboratory Results - last 24 hr 09/18/24 09/19/24 09/19/24 23:29 01:24 15:17 WBC 10.0 RBC 5.53 Hgb 17.0 H Hct 48.1 MCV 87 MCH 30.7 MCHC 35.3 RDW Std Deviation 38.2 Plt Count 281 Neut % (Auto) 53 Lymph % (Auto) 31 [place] % (Auto) 11 Eos % (Auto) 4 Baso % (Auto) 1 Neut # (Auto) 5.3 Lymph # (Auto) 3.1 [place] # (Auto) 1.1 H Eos # (Auto) 0.4 Baso # (Auto) 0.1 Immature Gran # (Auto) 0.02 H Absolute Nucleated RBC 0.00 Immature Gran % 0 Nucleated RBC % 0 PT 11.0 INR 1.0 APTT 26.0 Sodium 140 Potassium 3.5 Chloride 103 Carbon Dioxide 27.0 Anion Gap 10 BUN 13 Creatinine 1.1 Estim Creat Clear Calc 94.6 eGFR > 60 BUN/Creatinine Ratio [address] Glu mg/dL 298 H Hemoglobin A1c 12.0 H Calculated Osmolality 289 Calcium 9.1 Corrected Calcium 9.1 Magnesium 1.8 Total Bilirubin 0.5 AST 22 ALT 26 Alkaline Phosphatase 89 Troponin I 0.084 H* 0.076 H* B-Natriuretic Peptide 264 H Total Protein 7.3 Albumin 4.3 Globulin 3.0 Albumin/Globulin Ratio 1.4 Ur Collection Type Clean Catch Urine Color Lt-Yellow Urine Clarity Clear Urine pH 6.5 Ur Specific [place] 1.020 Urine Protein 1+ A Urine Glucose (UA) 4+ A Urine Ketones Negative Urine Blood Negative Urine Nitrite Negative Urine Bilirubin Negative Urine Urobilinogen (Auto) Negative Ur Leukocyte Esterase Negative Urine RBC < 1 Urine WBC 2 Ur Squamous Epith Cells 1 Urine Bacteria None CSF Appearance CSF Color CSF WBC CSF RBC CSF Cell Count Tube # CSF Mononuclear WBCs CSF Polynuclear WBCs CSF Glucose CSF Total Protein Urine Opiates Screen Negative Urine Fentanyl Screen Negative Ur Barbiturates Screen Negative U Amphetamin/Meth Scrn Negative U Benzodiazepines Scrn Negative U Cocaine Metab Screen Negative U Marijuana (THC) Screen Negative Ethyl Alcohol < 3.0 09/19/24 19:45 WBC RBC Hgb Hct MCV MCH MCHC RDW Std Deviation Plt Count Neut % (Auto) Lymph % (Auto) [place] % (Auto) Eos % (Auto) Baso % (Auto) Neut # (Auto) Lymph # (Auto) [place] # (Auto) Eos # (Auto) Baso # (Auto) Immature Gran # (Auto) Absolute Nucleated RBC Immature Gran % Nucleated RBC % PT INR APTT Sodium Potassium Chloride Carbon Dioxide Anion Gap BUN Creatinine Estim Creat Clear Calc eGFR BUN/Creatinine Ratio Glucose Estimated Ave Glu mg/dL Hemoglobin A1c Calculated Osmolality Calcium Corrected Calcium Magnesium Total Bilirubin AST ALT Alkaline Phosphatase Troponin I B-Natriuretic Peptide Total Protein Albumin Globulin Albumin/Globulin Ratio Ur Collection Type Urine Color Urine Clarity Urine pH Ur Specific [place] Urine Protein Urine Glucose (UA) Urine Ketones Urine Blood Urine Nitrite Urine Bilirubin Urine Urobilinogen (Auto) Ur Leukocyte Esterase Urine RBC Urine WBC Ur Squamous Epith Cells Urine Bacteria CSF Appearance Clear CSF Color Colorless CSF WBC 1 CSF RBC 0 CSF Cell Count Tube # Tube #3 CSF Mononuclear WBCs 0 CSF Polynuclear WBCs 100 CSF Glucose 136 H CSF Total Protein 70 H Urine Opiates Screen Urine Fentanyl Screen Ur Barbiturates Screen U Amphetamin/Meth Scrn U Benzodiazepines Scrn U Cocaine Metab Screen U Marijuana (THC) Screen Ethyl Alcohol Assessment & Plan Assessment and plan (1) Cerebrovascular accident: Status: Acute Assessment and plan: As the MRI brain showed findings suspicious for demyelinating disease, patient underwent lumbar puncture to evaluate further. Will continue with the Plavix 75 mg a day now and hold off on aspirin. Continue with statin follow-up with rest of the workup including hypercoagulopathy panel and transesophageal echocardiogram. Will follow-up with results from the CSF analysis for MS panel as an outpatient (2) Hypertension: Status: Acute Assessment and plan: Continue with aggressive blood pressure management to keep the systolic blood pressure under 140 as the symptoms have been there for 2 days prior (3) Type 2 diabetes mellitus: Status: Acute Assessment and plan: Checking fingerstick glucose and follow sliding scale insulin per protocol note his A1c: 12 needs diabetes education (4) Dyslipidemia (high LDL; low HDL): Status: Acute Assessment and plan: Continue with statin
[2024-09-20] VITALS (18 sets, daily range): BP systolic 131–173; BP diastolic 72–112; PULSE 69–101; RESP 18–26; TEMP 36.1–36.8; O2SAT 95–100; BMI 32.2
[2024-09-20 05:40] LABS: Misc Send Out* See Sep Rpt
[2024-09-20 06:10] LABS: Basophils # (Auto) 0.1 Thou/mm3 (0.0-0.2); Basophils % (Auto) 1 % (0-2.5); Eosinophils # (Auto) 0.4 Thou/mm3 (0.0-0.5); Eosinophils % (Auto) 4 % (0-10); Hematocrit 46.3 % (41.0-53.0); Hemoglobin 16.9 g/dL (13.5-16.0); Immature Granulocytes % (Auto) 0 % (0-0); Immature Granulocytes Auto 0.03 Thou/mm3 (0.00-0.00); Lymphocytes # (Auto) 2.9 Thou/mm3 (1.0-4.8); Lymphocytes % (Auto) 25 % (10-50); Mean Corpuscular HGB Conc 36.5 g/dl (31.0-37.0); Mean Corpuscular Hemoglobin 31.1 pg (25.0-35.0); Mean Corpuscular Volume 85 fL (80-100); Monocytes # (Auto) 1.1 Thou/mm3 (0.0-0.8); Monocytes % (Auto) 9 % (0-12); Neutrophils % (Auto) 61 % (37-80); Nucleated Red Blood Cell % 0 /100 WBC (0); Platelet Count 281 Thou/mm3 (140-440); RDW Standard Deviation 37.6 fL (35.1-43.9); Red Blood Count 5.44 Miln/mm3 (4.50-5.90); White Blood Count 11.5 Thou/mm3 (3.8-10.6)
[2024-09-20 06:27] LABS: Alanine Aminotransferase 24 U/L (10-49); Albumin, Serum 3.9 gm/dL (3.5-5.0); Albumin/Globulin Ratio 1.4 (1.2-2.2); Alkaline Phosphatase 71 U/L (46-116); Anion Gap 12 (7-16); Aspartate Amino Transferase 19 U/L (0-34); BUN/Creatinine Ratio 16 Ratio (12-20); Bilirubin,Total 0.7 mg/dL (0.3-1.2); Blood Urea Nitrogen 19 mg/dL (9-23); Calcium 9.3 mg/dL (8.3-10.6); Calcium (Corrected) 9.4 mg/dL (8.5-10.1); Carbon Dioxide 30.1 mMol/L (20.0-31.0); Cardiac Risk Estimate 6.2 RATIO (4.0-6.7); Chloride 99 mMol/L (98-107); Cholesterol 161 mg/dL (132-200); Creatinine (Component) 1.2 mg/dL (0.6-1.3); Estimated Creatinine Clearance 86.7 mL/min (>60); Globulin 2.7 gm/dL (2.3-3.5); Glucose 199 mg/dL (74-106); HDL Cholesterol 26 mg/dL (40-60); LDL Cholesterol,Calculated 108 mg/dL (0-130); Magnesium 1.9 mg/dL (1.6-2.6); Osmolality,Calculated 289 (275-295); Phosphorous 4.4 mg/dL (2.4-5.1); Potassium 3.5 mMol/L (3.4-5.1); Sodium 141 mMol/L (136-145); Thyroid Stimulating Hormone 1.16 uIU/mL (0.55-4.78); Total Protein 6.6 gm/dL (5.7-8.2); Triglycerides 133 mg/dL (30-150); eGFR > 60 See Note
[2024-09-20] MEDS: INSULIN LISPRO (AdmeLOG) 1 UNIT/0.01 ML UNIT SC ×2 (07:33→12:32)
[2024-09-20] MEDS: BENZOCAINE 20% (Hurricaine) SPRAY 1 DOSE TOP (08:38)
[2024-09-20] MEDS: MIDAZOLAM INJ 1 MG/ML VIAL 2 ML 2 MG IVP (08:39)
[2024-09-20] MEDS: fentaNYL CIT INJ 50 mCg/ML AMP 2ML IVP (08:39)
[2024-09-20] MEDS: CLOPIDOGREL BISULFATE 75 MG TABLET PO (10:49)
[2024-09-20] MEDS: Lisinopril 2.5 MG TABLET 20 MG PO (10:51)
[2024-09-20] MEDS: amLODIPine BESYLATE 5 MG TABLET 10 MG PO (10:52)
[2024-09-20] MEDS: ENOXAPARIN SOD INJ 40 MG/0.4 ML SYRINGE SC (10:52)
--- NOTE | 2024-09-20 11:50 | ECHO_ITS ---
Transesophageal Echo Report Ht (in): 69 Wt (lb): 220 Exam Location: Echo Lab Status: Inpatient Senior Customer Service Representative: Yocasta Biswas Indications: Procedure Performed: BP: 138 / 92 HR: 69 Technical Quality: Adequate FINDINGS Left Ventricle Normal left ventricular size, wall thickness, systolic function with no obvious regional wall motion abnormalities. Normal left ventricular diastolic filling pattern for age. The ejection fraction is visually estimated at 60 %. Right Ventricle The right ventricle appears normal. Left Atrium The left atrium is normal by two-dimensional, color flow and Doppler imaging with no structural abnormalities, no thrombus formation present. The left atrial appendage appears normal with no evidence of thrombus. Right Atrium The right atrium is normal by two-dimensional imaging, color flow and Doppler imaging with no structural abnormalities, no thrombus formation present. Atrial Appendages The left atrial appendage appears normal with no evidence for thrombus. Atrial Septum An intravenous agitated saline injection indicated no evidence of a shunt across the atrial septum. Aorta The aorta is normal by two-dimensional, color flow and Doppler interrogation. Mitral Valve The mitral valve is normal by two-dimensional, color flow and Doppler interrogation. There is mild mitral valve regurgitation, stenosis or prolapse. Aortic Valve The aortic valve is trileaflet and normal by two-dimensional, color flow and Doppler interrogation. There is no significant aortic valve regurgitation. Tricuspid Valve The tricuspid valve is normal by two-dimensional, color flow and Doppler interrogation. There is no significant tricuspid valve regurgitation. Pulmonic Valve The pulmonic valve is normal by two-dimensional, color flow and Doppler interrogation. There is no significant pulmonic valve regurgitation. Vessels The pulmonary artery appears normal. The inferior vena cava pulmonary and hepatic veins appear normal. Pericardium The pericardium is normal by two-dimensional imaging. There is no significant pericardial effusion. CONCLUSIONS Indications: Embolic Stroke Left ventricle size and function are normal with estimated EF of 60%. Mild MR. SAMI is normal with no evidence of thrombus. IAS is normal with no evidence of shunting. No pericardial effusion. Nicky Flowers (Electronically Signed) Final Date: 20 September 2024 12:02
--- NOTE | 2024-09-20 14:11 | PC.PT ---
PT eval only. Patient is xI. Patient is safe to ambulate to the bathroom and in the halls with no AD or staff. RN made aware.
--- NOTE | 2024-09-20 14:29 | ESDS_ITS ---
<Statement entered by Leif Berg MD - 09/20/24 21:53> I discussed with and supervised the internal control consultant physician involved in the care of this patient. Patient assessment and plan was discussed with entire medicine team, including my attending. I agree with the assessment and plan as documented by internal control consultant doctor. Patient care was discussed with my attending physician Dr.Tingle Leif Berg, PGY-2 Planned Discharge Date 09/20/24 DS: Providers Provider Date of admission: 09/19/24 08:34 Primary care physician: Physician Krystyna Primary/Family Admitting Provider: Drew Albarran DO Attending Provider on Admission: Drew Albarran DO Consults: 09/18/24 23:52 Consult to Neurology / Tele-Neurology Routine Comment: Consulting Provider: [facility] 09/19/24 08:41 Referral Physical Therapy Routine Comment: Physician Instructions: Referral Speech Therapy Routine Comment: 09/19/24 11:51 Consult to Cardiology Routine Comment: MARCIE for possible embolic source of stroke Consulting Provider: Jennie Flowers 09/19/24 18:48 Consult to Neurology / Tele-Neurology Routine Comment: acute stroke Consulting Provider: Ramiro Olivia 09/20/24 11:10 Referral Registered Dietitian Routine Comment: Referral Registered Dietitian Urgent Comment: Attending Provider on DC: Leonora Rivera MD Discharging Provider: Leonora Rivera MD DS: Diagnosis Problem List Completed Was Problem List Reviewed/Reconciled?: Yes Hospital Course Hospital Course Hospital course: The patient is a 49-year-old male with previous medical hostiry of TIA who came into the hospital on 09/18/2024 with complaints of right hand weakness, difficulty finding words. He also reports that he measured his blood pressure and his systolic blood pressure was over 200. In the ED his blood pressure was 230/159, heart rate 94, respiratory rate 18, afebrile, saturating well on room air. Labs were significant for hemoglobin 17.0, troponin 0.084, BNP 264, glucose 279. Head CT was suspicious for acute hemorrhage. Head and neck CTA showed 90% stenosis of M1 segment left middle cerebral artery. Chest x-ray was negative for pneumonia or pulmonary edema. Teleneuro was consulted, due to the concern for intracranial bleeding patient was not started on antiplatelet therapy and was not a candidate for TNK. Dr. Hogue, neurosurgeon at [facility] was consulted, reviewed the imaging, did not recommend to transfer. Patient denied taking testosterone. Patient was admitted for acute stroke workup and management. MRI read by radiologist - multiple areas of stroke - multiple acute infarcts in the left occipital lobe, left caudate nucleus, left parietal lobe, review by neurologist suspicious for demyelinating disease. Patient underwent LP, fluid was sent for analysis, results are pending. Pending results of hypercogulation panel. PT and speech therapy evaluated the patient, no additional rehabilitation recommended. Patient's A1c was found to be 12%. He was started on insulin. He was started on antihypertensive therapy, hypertensive emergency has resolved. Patient was seen and examined by the bedside and was medically cleared for discharge home 09/20/24. 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 #Hypertension #Hypertensive emergency, resolved #Elevated troponin #Type 2 diabetes, newly discovered, poorly controlled #Obesity Discharge recommendations: Discharge recommendations: For your diabetes: - Inject Glargine 20U every day before bedtime - Apply Lifestreams Hector 3 plus sensor to the instructed area and change sensor every 14 days - Check blood sugar in the morning before breakfast and 2 hours after each meals - Follow-up with your PCP in 1 week For your high blood pressure: - Follow-up with your PCP in 1 week - Measure your blood pressure every day and write it down to show your PCP for at least 1 week - Take lisinopril 20 mg once every day - Tale amlodipine 10 mg once a day every day For your right hand weakness: - Follow-up with neurologist Dr. Olivia in 2 weeks for results of cerebrospinal fluid tests - Follow-up with your PCP for results of hypercoagulation panel results - Plavix 75 mg once daily for 4 weeks Schedule a follow-up with your PCP: [place] [address] [place] [address] If your symptoms worsen, come to the ED or call 911 Plan of care discussed with attending Dr. Albarran, PGY-[address] Berg. Leonora Rivera MD, PGY 1. Time Spent with Patient Time attestation: Total time spent providing and/or coordinating discharge services: Time spent: Greater than 30 minutes Exam Vital Signs Temp Pulse Resp BP Pulse Ox O2 Del Method O2 Flow Rate 97.7 F 89 21 H 158/102 H 95 Room Air 2 09/20/24 12:00 09/20/24 12:09/20/24 12:09/20/24 12:09/20/24 12:09/20/24 12:09/20/24 08:49 Narrative Exam Gen: Well-developed and well-nourished. HEENT: NCAT, PERRLA, EOMI, MMM, anicteric conjunctivae. CVS: normal S1 and S2. RRR. No M/R/G. Resp: CTA B/L. No rhonchi, rales, crackles or wheezing. Abd: soft, non-tender, non-distended. BS+ in all 4 quadrants. MSK: Good ROM in BUE & BLE. No edema or rash. Neuro: Right sided facial droop. Mild weakness in RUE, strength 5/5 in all other extremities. Alert and oriented x3. Psych: appropriate mood and affect. Discharge Plan Plan Patient Disposition: Home w/HOME HEALTH Care Plan Goals: Discharge recommendations: For your diabetes: - Inject Glargine 20U every day before bedtime - Apply Freestyle Hector 3 plus sensor to the instructed area and change sensor every 14 days - Check blood sugar in the morning before breakfast and 2 hours after each meals - Follow-up with your PCP in 1 week For your high blood pressure: - Follow-up with your PCP in 1 week - Measure your blood pressure every day and write it down to show your PCP for at least 1 week - Take lisinopril 20 mg once every day - Tale amlodipine 10 mg once a day every day For your right hand weakness: - Follow-up with neurologist Dr. Olivia in 2 weeks for results of cerebrospinal fluid tests - Follow-up with your PCP for results of hypercoagulation panel results - Plavix 75 mg once daily for 4 weeks Schedule a follow-up with your PCP: [place] [address] [place] [address] If your symptoms worsen, come to the ED or call 911 Via Google translate: Recomendaciones para el ankita: Para la diabetes: - Inyectar 20 U de glargina todos los d?as antes de acostarse. - Aplicar el sensor Freestyle Hector 3 plus en la brandon indicada y cambiarlo cada 14 d?as. - Controlar la glucemia por la ma?sridevi antes del desayuno y 2 horas despu?s de cada comida. - Consultar con light m?dico de cabecera en brandon semana. Para la presi?n arterial ankita: - Consultar con light m?dico de cabecera en brandon semana. - Medirse la presi?n arterial todos los d?as y anotarla para mostr?rsela a light m?dico de cabecera argenis al menos brandon semana. - Taco lisinopril 20 mg brandon vez al d?a. - Taco amlodipino 10 mg brandon vez al d?a. Para la debilidad en la mano derecha: - Consultar con el neur?logo Dr. Olivia en 2 semanas para obtener los resultados de las pruebas de l?quido cefalorraqu?ildefonso. - Consultar con light m?dico de cabecera para obtener los resultados del panel de hipercoagulabilidad. - Plavix 75 mg brandon vez al d?a argenis 4 semanas. Programar brandon castro de seguimiento con light m?dico de cabecera: Becki [facility] [address] [place] [address] Si kai s?ntomas empeoran, acuda a urgencias o llame al 911. Prescriptions/Referrals Prescriptions/Med Rec: New clopidogrel 75 mg Tablet 75 mg PO QDAY 30 Days Qty: 30 0RF Rx Instructions: Take one tablet once daily for 30 days lisinopril 20 mg tablet 20 mg PO QDAY 30 Days Qty: 30 0RF Rx Instructions: Take one tablet once daily atorvastatin 40 mg tablet 40 mg PO HS 30 Days Qty: 30 0RF Rx Instructions: Take 1 tablet once daily amlodipine 10 mg tablet 10 mg PO QDAY 30 Days Qty: 30 0RF Rx Instructions: Take one tablet once daily (DME) pen needle, diabetic [Pen Needle] 29 gauge x 1/2 needle See Rx Instructions .ROUTE Qty: 100 0RF Rx Instructions: As directed (DME) pen needle, diabetic 29 gauge x 1/2 needle See Rx Instructions .Route Qty: 100 1RF Rx Instructions: As directed (DME) FreeStyle Hector 3 Plus Sensor Device See Rx Instructions .Route Qty: 1 6RF Rx Instructions: Apply as instructed, change the sensor every 14 days amlodipine 10 mg tablet 10 mg PO QDAY Qty: 30 1RF Rx Instructions: Take one tablet once daily clopidogrel [Plavix] 75 mg tablet 75 mg PO QDAY Qty: 30 1RF Rx Instructions: Take one tablet once daily lisinopril 20 mg tablet 20 mg PO QDAY Qty: 30 1RF Rx Instructions: Take one tablet once daily atorvastatin 40 mg tablet 40 mg PO QDAY Qty: 30 1RF Rx Instructions: Take one tablet once daily insulin glargine 100 unit/mL (3 mL) insulin pen 20 unit subcut QPM Qty: 15 0RF Rx Instructions: Inject 20 units once daily before sleep Referrals: [facility] [Outside] No Primary/Family,Physician [Primary Care Provider] - Ramiro Olivia MD [Physician] - () Patient/Caregiver Discharge Instructions Education Materials: Checking Your Own Blood Pressure, Controlling High Blood Pressure, Hypoglycemia (Low Blood Sugar), Hypertension Stroke Link, Hypertension Dc, Glucose Check Steps, ED Diabetes- Overview, ED Using an Injection Pen, Diabetes and High Blood Pressure Print Language: Swedish Stand Alone Forms: Lovely Award Info., Patient Portal Info Letter Discharge Order Discharge Orders: Discharge (Routine); Ordered 09/20/24 Ordered By: Leonora Rivera Quality Discharge Quality Measures VTE prophylaxis Attestestation Attestation I have discussed and was present for the essential components of the discharge history, physical examination, diagnosis, and discharge treatment plan with the resident. I agree with the patient's discharge care as documented by the resident and amended herein by me. Omari Albarran, . The patient understood all discharge instructions, all questions were answered satisfactorily. The patient was instructed to return to the Emergency Department is symptoms worsened or persisted. MARCIE was negative for any cardiac thrombus, patient will follow-up with outpatient neurology for final results of CSF studies considering concern for possible demyelinating disease. Patient has received diabetic education considering his A1c was 12. Patient was stable, afebrile, tolerating p.o. intake and discharged on Plavix, statin amlodipine and lisinopril for stroke prevention and improved blood pressure control. Patient was also discharged on Lantus 20 units every nightly however will need close follow-up with his primary care provider for improved monitoring, likely will need basal bolus insulin and close monitoring in the outpatient setting. All questions were answered satisfactorily. Although this document has been carefully reviewed, there may still be some p honetic and other typographical errors. These errors are purely grammatical due to imperfections in the software program and should not be construed in any way to compromise the substance of the patient's medical care during this visit.
--- NOTE | 2024-09-20 15:28 | PC.CC ---
Met w/ patient at bedside per request of for insulin education. Interpretation via RU Duran. Patient is new DM A1c 12.2 and CVA. At bedside, patient c/o poor vision worse than prior to hospitalization as well as right handed weakness. Patient reports he is right handed. Patient reports IDDM in mother and sister but he has little understanding of insulin or injections. Demonstrated use of insulin pen and injection technique. Patient had some difficulty with right handed motor skills with return demonstration, however, was able to successfully prepare insulin pen and perform an injection. Emphasized tactile and audible click when dialing units to compensate for poor vision. Emphasized the need for follow-up for continued DM management. Patient uses [facility] [employer] [facility] and EMR was updated to reflect patient's preference. Notified by RU that patient prefers CGM over glucometer. Rx requested from Dr. Rivera and PA approved through 09/20/25. S/W [employer] [facility] [employer] to update on insurance coverage and LEAH.
[2024-09-23 23:34] LABS: Cardiolipin Ab (IgA) <2.0 APL-U/mL; Cardiolipin Ab (IgG) <2.0 GPL-U/mL
[2024-09-24 06:47] LABS: Erythropoietin (EPO)* 6.9 mIU/mL (2.6-18.5)
[2024-09-24 06:53] LABS: Antithrombin III, Activity 98 % normal (80-135); Antithrombin III, Antigen 97 % normal (80-120); PTT-LA Screen 30 seconds (< OR = 40); Protein C Antigen, Total* 122 % normal (70-140); Protein S Antigen, Total* 100 % normal (70-140); dRVVT Screen 37 seconds (< OR = 45)
[2024-09-24 06:54] LABS: Cardiolipin Ab (IgM) <2.0 MPL-U/mL
[2024-09-25 15:36] LABS: Albumin, CSF 14.7 mg/dL (8.0-42.0); IgG Index, CSF 1.31 (<0.70); IgG, CSF 5.8 mg/dL (0.8-7.7); IgG, Serum 1120 mg/dL (600-1640)
[2024-09-26 07:17] LABS: Albumin, Serum 3.7 g/dL (3.6-5.1)
[2024-09-26 07:20] LABS: VDRL, CSF Qual* NON-REACTIVE
--- NOTE | 2024-09-26 09:57 | PC.CM ---
I reviewed patient notes and I see patient was discharged with home health as disposition. It looks like patient does not have a PCP and he was to follow up at the [facility]. I called the [facility] and I left a message for them to call me back. I wanted to let them know that patient was not connected with home health on discharge. I was going to let them know if they wanted home health they would need to set it up from their office.
[2024-09-28 06:56] LABS: Angiotensin Convert Enz, CSF* 6 U/L (< OR = 15); Myelin Basic Protein, CSF* <2.0 mcg/L (< OR = 4.0); Oligoclonal Bands, CSF* PRESENT (ABSENT)
--- NOTE | 2024-10-03 23:28 | PD.VPROG1 ---
Telemedicine visit statement This visit was conducted with the use of interactive audio and video telecommunications system that permits real time communication between the patient and the provider. Patient's verbal consent for virtual visit was obtained on 10/03/24 at 2328. Documentation for date of: 09/20/24 Virtual exam Vital Signs Temp Pulse Resp BP Pulse Ox O2 Del Method O2 Flow Rate 97.8 F 101 H 25 H 157/106 H 95 Room Air 2 09/20/24 16:00 09/20/24 16:00 09/20/24 16:00 09/20/24 16:00 09/20/24 16:00 09/20/24 16:00 09/20/24 08:49 FiO2 98 09/20/24 09:00 Objective Labs 09/20/24 05:15 09/20/24 05:15
== END 2024-09-20 17:37 | disposition home health service (06) | DRG 45 ==
LOC: SERX 09-19 07:24 → SERHOLD 09-19 08:47 → S2SX 09-19 11:56 → S2NX 09-20 06:48 → S2SX 09-21 09:23
PROVIDERS: Emergency Medicine; Internal Medicine; Psychiatry & Neurology Neurology; Admitting Provider Student in an Organized Health Care Education/Training Program; Emergency Provider Emergency Medicine; Visit Provider Student in an Organized Health Care Education/Training Program
PROC: (CPT 93312; principal; 2024-09-20 09:00)
DX: I63.9 Cerebral infarction, unspecified (principal); D75.1 Secondary polycythemia; E78.5 Hyperlipidemia, unspecified; I10 Essential (primary) hypertension; I16.1 Hypertensive emergency; E11.65 Type 2 diabetes mellitus with hyperglycemia; Z79.02 Long term (current) use of antithrombotics/antiplatelets; Z79.4 Long term (current) use of insulin; G37.9 Demyelinating disease of central nervous system, unspecified; E66.9 Obesity, unspecified; Z68.32 Body mass index [BMI] 32.0-32.9, adult; Z86.73 Personal history of transient ischemic attack (TIA), and cerebral infarction without residual deficits
CPT/HCPCS: 36415; 70450; 70496; 70498; 70553; 71045; 80053; 80061; 80307; 80320; 81001; 82040; 82042; 82164; 82668; 82784; 82945; 83036; 83090; 83735; 83873; 83880; 83916; 84100; 84157; 84443; 84484; 85025; 85300; 85301; 85302; 85305; 85610; 85613; 85730; 86146; 86147; 86148; 86171; 86592; 87070; 87205; 89051; 92523; 93005; 93225; 93306; 93312; 96365; 96366; 97161; 99291; A4649; A9579; J1650; J1815; J2250; J2404; J3010; J3490; Q9967; A9270; G0480; J1920

== ENCOUNTER 2024-09-26 13:34 | Outpatient (AMB) | payer MEDICAID, SELFPAY ==
[2024-09-26 13:43] VITALS: BP 151/96; PULSE 109; RESP 18; TEMP 36.6; O2SAT 96; BMI 29.2
--- NOTE | 2024-09-26 13:43 | ACNOTE_ITS ---
Vital Signs 09/26/24 13:43 Height 1.8 m Height Method Stated Weight 94.971 kg Weight Measurement Method Standing Scale BMI 29.2 BP 151/96 H Blood Pressure Source Automatic Cuff Blood Pressure Location Right Upper Arm Position Sitting Respiration 18 Pulse 109 H Pulse Source Monitor Temp 97.8 F Temp Source Temporal Artery Scan Pulse Oximetry (%) 96 Oxygen Delivery Method Room Air Allergies/Meds Allergies & Medications Allergies No Known Allergies Allergy (Verified 09/26/24 13:45) Medication Reconciliation amlodipine 10 mg tablet 10 mg PO QDAY #30 tabs 09/20/24 [Rx Confirmed 09/26/24] amlodipine 10 mg tablet 10 mg PO QDAY 30 days #30 tabs 09/20/24 [Rx Confirmed 09/26/24] atorvastatin 40 mg tablet 40 mg PO HS 30 days #30 tabs 09/20/24 [Rx Confirmed 09/26/24] atorvastatin 40 mg tablet 40 mg PO QDAY #30 tabs 09/20/24 [Rx Confirmed 09/26/24] blood-glucose sensor ([employer] Hector 3 Plus Sensor device) #1 ea 09/20/24 [Rx Confirmed 09/26/24] clopidogrel 75 mg tablet 75 mg PO QDAY 30 days #30 tabs 09/20/24 [Rx Confirmed 09/26/24] clopidogrel 75 mg tablet (Plavix) 75 mg PO QDAY #30 tabs 09/20/24 [Rx Confirmed 09/26/24] insulin glargine 100 unit/mL (3 mL) subcutaneous pen 20 unit (0.2 mL) subcut QPM #15 mL 09/20/24 [Rx Confirmed 09/26/24] lisinopril 20 mg tablet 20 mg PO QDAY #30 tabs 09/20/24 [Rx Confirmed 09/26/24] lisinopril 20 mg tablet 20 mg PO QDAY 30 days #30 tabs 09/20/24 [Rx Confirmed 09/26/24] pen needle, diabetic 29 gauge x 1/2 #100 ea 09/20/24 [Rx Confirmed 09/26/24] pen needle, diabetic 29 gauge x 1/2 (Pen Needle) #100 ea 09/20/24 [Rx Confirmed 09/26/24] MA Intake Visit Data Collection New Patient or Established: Established Patient (seen at [facility] within 3 years) Seen by Clinical Staff ONLY (RN/MA): No Pain Present Currently: No Pain scale:: 0 Pain Scale Used: Deleon-Whipple/Numerical Transformer Maker Required: No PCP or OBGYN visit in last 3 months: No Hx Now: No Do You Feel Safe at Home: Yes Authorities Contacted: N/A Smoking Status Smoking Status: Never smoker Immunization / Flu Flu Vaccine in the Last 12 Months: No Flu Vaccine Exclusion Criteria: No Exclusion Criteria Past Medical History Past Medical History NEUROLOGIC: Positive Transient Ischemic Attacks (TIA) CARDIAC: Positive Hypertension (pt states found out a few days ago); Negative Congestive Heart Failure RESPIRATORY: Negative Chronic Obstructive Pulmonary Disease (COPD) GENITOURINARY: Negative Renal Disease ENDOCRINE: Negative Diabetes Mellitus Type 1 or Diabetes Mellitus Type 2 Social History SMOKING STATUS: Smoking status: Never smoker ALCOHOL: Alcohol Intake: Never HOUSING: Housing: Apartment LIVES WITH: Lives With: Alone Patient Portal Questionaires Social History Living Situation History Housing: Apartment Tobacco History Smoking Status: Never smoker Alcohol History Alcohol Intake: Never Domestic Abuse History Do You Feel Safe at Home: Yes Review of Systems Report any current symptoms Only answer those that you have currently: Past Medical History Past Medical History Have you ever been diagnosed with any of the following: Neurological Problems Transient Ischemic Attacks (TIA): Yes Cardiology Problems Congestive Heart Failure: No Hypertension: Yes (pt states found out a few days ago) Respiratory Problems Chronic Obstructive Pulmonary Disease (COPD): No Genital/Urinary Problems Renal Disease: No Endocrine Problems Diabetes Mellitus Type 1: No Diabetes Mellitus Type 2: No History of Present Illness HPI Narrative Mr. Myles Sanchez is a 49-year-old male patient with significant medical history of TIA who was recently discharged from [facility] on 09/20/24 after undergoing CVA workup. At the time of ED visit, patient was found to complain of right hand weakness and difficulty finding words. Patient was also found to be hypertensive with SBP of 200. While in hospital patient was also found to have DM2 with A1c of 12%. Head CT was suspicious for acute hemorrhage. Head and neck CTA showed 90% stenosis of M1 segment left middle cerebral artery. MRI of the brain showed multiple acute infarcts in the left occipital lobe, left caudate nucleus, left parietal lobe. Neurologist Dr. Olivia followed up patient while in hospital. There was concerns for demyelinating disease and thus LP/CSF studies were ordered. Patient was also discharged home on: amlodepine, lisinopril, plavix and Glargine insulin. 09/26/24: Today patient states that his left side weakness has improved but he continues to have intermittent diziness. Patient has been adherent to his medications but has not checked his blood pressure and glucose at home. Patient was ecouraged to keep diary of his numbers and to bring them on his next office visit. CSF studies were reviewed with patient which indicated increast IgG protein indicating possible MS. Referral with neurology Dr. Olivia was initiated and the process was explained to the patient. Appointment was made for x1 month from now. Review of Systems Review of Systems Systems Reviewed: All systems reviewed, normal except as documented Objective/Exam Narrative Physical exam: Constitutional: well-developed, well-nourished, in no acute distress, lying in bed HEENT: NCAT, EOMI, reactive round pupils b/l, patent nares b/l, moist mucous membranes Lung: CTAB, no wheezing, no rhonchi Heart: Regular S1S2, no murmurs, gallops, or rubs Abdomen: Soft, non-distended, non-tender, bowel sounds present throughout Extremities: No cyanosis, clubbing, or edema, LE pulses present b/l Neurologic: Mild weakness of left side compared to right, reflexes are intact, no focal sensory or motor deficits noted, AOx3, appropriate affect Skin: Warm, dry, no lesions or rashes noted Assessment & Plan Diagnosis / Problem List (1) Cerebrovascular accident: Status: Acute Assessment & Plan: Patient recently admitted to [facility] for CVA workup Head and neck CTA showed 90% stenosis of M1 segment left middle cerebral artery MRI of the brain showed multiple acute infarcts in the left occipital lobe, left caudate nucleus, left parietal lobe Plan: -Referral to neurology with [facility] initiated -Continue better control of HTN and DM2 (2) Hypertension: Status: Acute Assessment & Plan: On hospital admission, patient with SBP of 200 Today SBP 150 Plan: -Continue Lisinopril 20 mg Qday -Continue Amlodipine 10 mg Qday -Will adjust BP meds on next visit if needed (3) Type 2 diabetes mellitus: Status: Acute Assessment & Plan: Last A1c of 12% Currently on 20 U insulin Glargine Plan: -Continue Glargine -Keep record of fasting morning glucose -Follow up on next visit (4) Dyslipidemia (high LDL; low HDL): Status: Acute Plan: -Continue plavix Office Procedures [facility] Level of Care Nursing/Assessment Patient Status: Established Patient Nursing Assessment/Reassessment: Medication Reconciliation, Update PMH in EMR and Vital Signs Coordination of Care: Complex Care and Chronic Disease 1-5, Consent,records obtained, informed consent, Education Simp Pt/Fam and Staff clarify orders Established Patient Charge Established Patient Point Assignment: 85 Established Patient Point Charge: EP Level 3 (80-115)
== END 2024-09-26 14:38 | disposition home or self-care (01) ==
LOC: HODAHC 13:34
PROVIDERS: Supervising Provider Internal Medicine; Visit Provider Internal Medicine
DX: I63.9 Cerebral infarction, unspecified (principal); G81.94 Hemiplegia, unspecified affecting left nondominant side; I66.02 Occlusion and stenosis of left middle cerebral artery; I10 Essential (primary) hypertension; E11.9 Type 2 diabetes mellitus without complications; Z79.4 Long term (current) use of insulin; E78.5 Hyperlipidemia, unspecified; Z79.02 Long term (current) use of antithrombotics/antiplatelets
CPT/HCPCS: 99213; G0463

== ENCOUNTER 2024-10-26 10:33 | Outpatient (AMB) | payer MEDICAID, SELFPAY ==
[2024-10-26 10:43] VITALS: BP 150/98; PULSE 103; RESP 18; TEMP 37; O2SAT 97; BMI 29.5
--- NOTE | 2024-10-26 10:43 | ACNOTE_ITS ---
Vital Signs 10/26/24 10:43 Height 1.8 m Height Method Stated Weight 95.821 kg Weight Measurement Method Standing Scale BMI 29.5 BP 150/98 H Blood Pressure Source Automatic Cuff Blood Pressure Location Right Upper Arm Position Sitting Respiration 18 Pulse 103 H Pulse Source Monitor Temp 98.6 F Temp Source Temporal Artery Scan Pulse Oximetry (%) 97 Oxygen Delivery Method Room Air Allergies/Meds Allergies & Medications Allergies No Known Allergies Allergy (Verified 10/26/24 10:44) Medication Reconciliation amlodipine 10 mg tablet 10 mg PO QDAY #30 tabs 09/20/24 [Rx Confirmed 10/26/24] atorvastatin 40 mg tablet 40 mg PO QDAY #30 tabs 09/20/24 [Rx Confirmed 10/26/24] blood-glucose sensor ([employer] Hector 3 Plus Sensor device) #1 ea 09/20/24 [Rx Confirmed 10/26/24] clopidogrel 75 mg tablet (Plavix) 75 mg PO QDAY #30 tabs 09/20/24 [Rx Confirmed 10/26/24] insulin glargine 100 unit/mL (3 mL) subcutaneous pen 20 unit (0.2 mL) subcut QPM #15 mL 09/20/24 [Rx Confirmed 10/26/24] lisinopril 20 mg tablet 20 mg PO QDAY #30 tabs 09/20/24 [Rx Confirmed 10/26/24] pen needle, diabetic 29 gauge x 1/2 #100 ea 09/20/24 [Rx Confirmed 10/26/24] pen needle, diabetic 29 gauge x 1/2 (Pen Needle) #100 ea 09/20/24 [Rx Confirmed 10/26/24] carvedilol 3.125 mg tablet (Coreg) 3.125 mg PO BID #60 tabs 10/26/24 [Rx] MA Intake Visit Data Collection New Patient or Established: Established Patient (seen at [facility] within 3 years) Seen by Clinical Staff ONLY (RN/MA): No Pain Present Currently: No Pain scale:: 0 Pain Scale Used: DeleonKiarraWhipple/Numerical Transport Aircrewman Required: No PCP or OBGYN visit in last 3 months: No Hx Now: No Do You Feel Safe at Home: Yes Authorities Contacted: N/A Smoking Status Smoking Status: Never smoker Immunization / Flu Flu Vaccine in the Last 12 Months: No Flu Vaccine Exclusion Criteria: No Exclusion Criteria Past Medical History Past Medical History NEUROLOGIC: Positive Transient Ischemic Attacks (TIA) CARDIAC: Positive Hypertension (pt states found out a few days ago); Negative Congestive Heart Failure RESPIRATORY: Negative Chronic Obstructive Pulmonary Disease (COPD) GENITOURINARY: Negative Renal Disease ENDOCRINE: Negative Diabetes Mellitus Type 1 or Diabetes Mellitus Type 2 Social History SMOKING STATUS: Smoking status: Never smoker ALCOHOL: Alcohol Intake: Never HOUSING: Housing: Apartment LIVES WITH: Lives With: Alone Patient Portal Questionaires Social History Living Situation History Housing: Apartment Tobacco History Smoking Status: Never smoker Alcohol History Alcohol Intake: Never Domestic Abuse History Do You Feel Safe at Home: Yes Review of Systems Report any current symptoms Only answer those that you have currently: Past Medical History Past Medical History Have you ever been diagnosed with any of the following: Neurological Problems Transient Ischemic Attacks (TIA): Yes Cardiology Problems Congestive Heart Failure: No Hypertension: Yes (pt states found out a few days ago) Respiratory Problems Chronic Obstructive Pulmonary Disease (COPD): No Genital/Urinary Problems Renal Disease: No Endocrine Problems Diabetes Mellitus Type 1: No Diabetes Mellitus Type 2: No History of Present Illness HPI Narrative Mylse Sanchez is a 49-year-old male with history of history of stroke (multiple acute infarcts), suspicion for demyelinating disease, hypertension, type 2 diabetes mellitus on insulin who presents to the [facility] for follow-up. He was discharged from [facility] on 09/20/2024 after undergoing CVA workup after experiencing right hand weakness and difficulty finding words. SBP of 200 at that time and found to have A1c of 12%. CT head suspicious for acute hemorrhage. CTA head/neck showed 90% stenosis of M1 segment of left MCA. MRI brain showed multiple acute infarcts in the left occipital lobe, left caudate nucleus, left and parietal lobe. Neurologist, Dr. Olivia, followed-up with patient while in hospital and was concerned for demyelinating disease and thus LP/CSF studies were ordered and will follow-up outpatient. Discharged home on: amlodipine, lisinopril, plavix and Glargine insulin. On previous visit on 09/26/2024, continued to have left-sided weakness but improved compared to presentation at the hospital with intermittent dizziness. Adherent to medications but has not checked his blood sugars or blood pressures while at home. CSF studies reviewed with patient, indicating that he may have multiple sclerosis. Referral sent to Dr. Olivia at that time. Today, continues to feel dizzy and states that his weakness in right upper extremity is 80% back to normal but has some stiffness in his fingers. Endorses some blurry vision at times but no pain with eye movements or eye pain in general, and Lhermitte's sign negative. CGM readings show 70% time in range (70-180) and 30% above range (180-250) in the last 30 days, average glucose 164 on 20 units glargine daily, which will be continued. Referral to neurology sent but currently waiting for insurance, will add Coreg 3.125 mg twice daily for additional blood pressure support his vitals showed BP 150/98 and pulse of 103. Review of Systems Review of Systems Systems Reviewed: All systems reviewed, normal except as documented Objective/Exam Narrative Physical exam: General: AOx3, no acute distress, able to speak full sentences HEENT: NC/AT, mucous membranes moist, bilateral sclera anicteric Cardiovascular: regular rate and rhythm, S1/S2 present, no murmurs appreciated Pulmonary: clear to auscultation bilaterally, no rales/rhonchi/wheezes Abdominal: soft, non-tender, non-distended, no rebound/guarding, normal bowel sounds present Musculoskeletal: normal ROM, no peripheral edema Skin: warm and dry, intact, no rashes Neuro: - CN II-XII intact, no focal deficits - Strength 5/5 in upper and lower extremities bilaterally Assessment & Plan Diagnosis / Problem List (1) Multiple sclerosis with acute neurologic event: Status: Acute Assessment & Plan: LP studies show elevated protein, presence of oligoclonal bands, CSF/serum IgG index of 1.3, and elevated IgG synthesis rate. Endorses blurry vision but no eye pain, negative Lhermitte's sign. Plan: ? Referral sent to neurology for follow-up and management (2) Cerebrovascular accident: Status: Acute Qualifiers: CVA mechanism: other Qualified Code(s): I63.89 - Other cerebral inf arction Assessment & Plan: Admitted on 09/19/2024 for CVA. Head and neck CTA showed 90% stenosis of M1 segment left middle cerebral artery. MRI of the brain showed multiple acute infarcts in the left occipital lobe, left caudate nucleus, left parietal lobe. Plan: ? Referral sent to neurology ? Continue to manage comorbidities (hypertension, diabetes, dyslipidemia) ? Plavix 75 mg p.o. daily (3) Hypertension: Status: Acute Qualifiers: Hypertension type: primary hypertension Qualified Code(s): I10 - Essent ial (primary) hypertension Assessment & Plan: BP 150/98 and slightly tachycardic at 103 bpm for which Coreg was added. Emphasized importance of monitoring blood pressures at home in order to appropriately titrate his medications and manage his risk factors for future strokes. Plan: ? Lisinopril 20 mg daily ? Amlodipine 10 mg daily ? Coreg 3.125 mg twice daily (4) Type 2 diabetes mellitus: Status: Acute Qualifiers: Diabetes mellitus senior care insulin use: without senior care use Diabetes mellitus complication status: with hyperglycemia Qualified Code(s): E11.65 - Type 2 diabetes mellitus with hyperglycemia Assessment & Plan: A1c of 12% on 09/19/2024. CGM readings show 70% time in range (70-180) and 30% above range (180-250) in the last 30 days, average glucose 164 on 20 units glargine daily. Will continue with 20 units glargine and hold off on oral medications and can consider starting on next visit. Plan: ? Continue glargine 20 units daily (5) Dyslipidemia (high LDL; low HDL): Status: Acute Plan: ? Atorvastatin 40 mg daily Orders: Referrals Neurology I63.9 - Cerebral infarction, unspecified Office Procedures [facility] Level of Care Nursing/Assessment Patient Status: Established Patient Nursing Assessment/Reassessment: Medication Reconciliation, Update PMH in EMR and Vital Signs Coordination of Care: Complex Care and Chronic Disease 1-5, Consent,records obtained, informed consent, Education Simp Pt/Fam and Staff clarify orders Established Patient Charge Established Patient Point Assignment: 85 Established Patient Point Charge: EP Level 3 (80-115)
== END 2024-10-26 11:36 | disposition home or self-care (01) ==
LOC: HODAHC 10:33
PROVIDERS: Supervising Provider Internal Medicine
DX: I69.354 Hemiplegia and hemiparesis following cerebral infarction affecting left non-dominant side (principal); I10 Essential (primary) hypertension; R42 Dizziness and giddiness; M25.649 Stiffness of unspecified hand, not elsewhere classified; G35 Multiple sclerosis; E11.65 Type 2 diabetes mellitus with hyperglycemia; Z79.4 Long term (current) use of insulin; E78.5 Hyperlipidemia, unspecified
CPT/HCPCS: 99213; G0463

== ENCOUNTER 2024-11-09 11:10 | Outpatient (AMB) | payer MEDICAID, SELFPAY ==
[2024-11-09 11:22] VITALS: BP 141/77; PULSE 90; RESP 18; TEMP 36.6; O2SAT 97; BMI 29.7
--- NOTE | 2024-11-09 11:22 | PD.RESCLINIC ---
Vital Signs 11/09/24 11:22 Height 1.8 m Height Method Stated Weight 96.218 kg Weight Measurement Method Standing Scale BMI 29.7 BP 141/77 H Blood Pressure Source Automatic Cuff Blood Pressure Location Right Upper Arm Position Sitting Respiration 18 Pulse 90 Pulse Source Monitor Temp 97.8 F Temp Source Temporal Artery Scan Pulse Oximetry (%) 97 Oxygen Delivery Method Room Air Allergies/Meds Allergies & Medications Allergies No Known Allergies Allergy (Verified 11/09/24 11:23) Medication Reconciliation amlodipine 10 mg tablet 10 mg PO QDAY #30 tabs 09/20/24 [Rx Confirmed 11/09/24] atorvastatin 40 mg tablet 40 mg PO QDAY #30 tabs 09/20/24 [Rx Confirmed 11/09/24] blood-glucose sensor (Ohlohyle Hector 3 Plus Sensor device) #1 ea 09/20/24 [Rx Confirmed 11/09/24] clopidogrel 75 mg tablet (Plavix) 75 mg PO QDAY #30 tabs 09/20/24 [Rx Confirmed 11/09/24] insulin glargine 100 unit/mL (3 mL) subcutaneous pen 20 unit (0.2 mL) subcut QPM #15 mL 09/20/24 [Rx Confirmed 11/09/24] lisinopril 20 mg tablet 20 mg PO QDAY #30 tabs 09/20/24 [Rx Confirmed 11/09/24] pen needle, diabetic 29 gauge x 1/2 #100 ea 09/20/24 [Rx Confirmed 11/09/24] pen needle, diabetic 29 gauge x 1/2 (Pen Needle) #100 ea 09/20/24 [Rx Confirmed 11/09/24] carvedilol 3.125 mg tablet (Coreg) 3.125 mg PO BID #60 tabs 10/26/24 [Rx Confirmed 11/09/24] MA Intake Visit Data Collection New Patient or Established: Established Patient (seen at [facility] within 3 years) Seen by Clinical Staff ONLY (RN/OCY): No Pain Present Currently: No Pain scale:: 0 Pain Scale Used: DeleonRobert/Numerical Guncot[employer] Packer Required: No PCP or OBGYN visit in last 3 months: No Hx Now: No Do You Feel Safe at Home: Yes Authorities Contacted: N/A Smoking Status Smoking Status: Never smoker Immunization / Flu Flu Vaccine in the Last 12 Months: No Flu Vaccine Exclusion Criteria: No Exclusion Criteria Past Medical History Past Medical History NEUROLOGIC: Positive Transient Ischemic Attacks (TIA) CARDIAC: Positive Hypertension (pt states found out a few days ago); Negative Congestive Heart Failure RESPIRATORY: Negative Chronic Obstructive Pulmonary Disease (COPD) GENITOURINARY: Negative Renal Disease ENDOCRINE: Negative Diabetes Mellitus Type 1 or Diabetes Mellitus Type 2 Social History SMOKING STATUS: Smoking status: Never smoker ALCOHOL: Alcohol Intake: Never HOUSING: Housing: Apartment LIVES WITH: Lives With: Alone Patient Portal Questionaires Social History Living Situation History Housing: Apartment Tobacco History Smoking Status: Never smoker Alcohol History Alcohol Intake: Never Domestic Abuse History Do You Feel Safe at Home: Yes Review of Systems Report any current symptoms Only answer those that you have currently: Past Medical History Past Medical History Have you ever been diagnosed with any of the following: Neurological Problems Transient Ischemic Attacks (TIA): Yes Cardiology Problems Congestive Heart Failure: No Hypertension: Yes (pt states found out a few days ago) Respiratory Problems Chronic Obstructive Pulmonary Disease (COPD): No Genital/Urinary Problems Renal Disease: No Endocrine Problems Diabetes Mellitus Type 1: No Diabetes Mellitus Type 2: No History of Present Illness HPI Narrative Myles Sanchez is a 49-year-old male with history of history of stroke (multiple acute infarcts), suspicion for demyelinating disease, hypertension, type 2 diabetes mellitus on insulin who presents to the [facility] for follow-up. He was discharged from [facility] on 09/20/2024 after undergoing CVA workup after experiencing right hand weakness and difficulty finding words. Noted to have SBP of 200 A1c of 12% during hospitalization. MRI brain showed multiple acute infarcts in the left occipital lobe, left caudate nucleus, left and parietal lobe. Neurologist, Dr. Olivia, followed-up with patient while in hospital and was concerned for demyelinating disease and LP/CSF study reuslts have come back consistent with multiple sclerosis. He has followed-up at the [facility] for a coupe of visits since being discharged and has been compliant with his medications. His CGM readings from the last 30 days show TIR of 77% for 70-180 and 22% for 180-220, average glucose 155, and glucoes management indicator of 7.0% in current regimen. He has since seen an clam dredger (Dr. Pili Montemayor) on 10/31/2024 and per notes patient brought in, exam showed proliferative diabetic retinopathy with macular edema bilaterally and recommended referral to ophthalmology. Follow-up appointment with optometry on 02/01/2025. He has still yet to see neurology and will follow-up on status for referral. Review of Systems Review of Systems Systems Reviewed: All systems reviewed, normal except as documented Objective/Exam Narrative Physical exam: General: AOx3, no acute distress, able to speak full sentences HEENT: NC/AT, mucous membranes moist, bilateral sclera anicteric Cardiovascular: regular rate and rhythm, S1/S2 present, no murmurs appreciated Pulmonary: clear to auscultation bilaterally, no rales/rhonchi/wheezes Abdominal: soft, non-tender, non-distended, no rebound/guarding, normal bowel sounds present Musculoskeletal: normal ROM, no peripheral edema Skin: warm and dry, intact, no rashes Neuro: - CN II-XII intact, no focal deficits - Strength 5/5 in upper and lower extremities bilaterally Assessment & Plan Diagnosis / Problem List (1) Multiple sclerosis with acute neurologic event: Status: Acute Assessment & Plan: LP studies show elevated protein, presence of oligoclonal bands, CSF/serum IgG index of 1.3, and elevated IgG synthesis rate. Endorses blurry vision but no eye pain, negative Lhermitte's sign. Plan: ? Referral sent to neurology for follow-up and management (2) Cerebrovascular accident: Status: Acute Qualifiers: CVA mechanism: other Qualified Code(s): I63.89 - Other cerebral infarction Assessment & Plan: Admitted on 09/19/2024 for CVA. Head and neck CTA showed 90% stenosis of M1 segment left middle cerebral artery. MRI of the brain showed multiple acute infarcts in the left occipital lobe, left caudate nucleus, left parietal lobe. Plan: ? Referral sent to neurology ? Continue to manage comorbidities (hypertension, diabetes, dyslipidemia) ? Plavix 75 mg p.o. daily (3) Hypertension: Status: Acute Qualifiers: Hypertension type: primary hypertension Qualified Code(s): I10 - Essential (primary) hypertension Assessment & Plan: On previous visit BP 150/98 and slightly tachycardic at 103 bpm for which Coreg was add and now improved at 121/77 with HR 90. Emphasized importance of monitoring blood pressures at home in order to appropriately titrate his medications and manage his risk factors for future strokes. Plan: ? Lisinopril 20 mg daily ? Amlodipine 10 mg daily ? Coreg 3.125 mg twice daily (4) Type 2 diabetes mellitus: Status: Acute Qualifiers: Diabetes mellitus complication detail: with diabetic retinopathy Diabetes mellitus complication status: with ophthalmic complications Diabetes mellitus buttermaker continuous churn insulin use: without buttermaker continuous churn use Diabetes mellitus macular edema: with macular edema Diabetic retinopathy severity: with proliferative retinopathy Laterality: bilateral Qualified Code(s): E11.3513 - Type 2 diabetes mellitus with proliferative diabetic retinopathy with macular edema, bilateral Assessment & Plan: A1c of 12% on 09/19/2024. CGM readings show 70% time in range (70-180) and 30% above range (180-250) in the last 30 days, average glucose 164 on 20 units glargine daily. Will continue with 20 units glargine and hold off on oral medications and can consider starting on next visit. Optometry visit showed proliferative diabetic retinopathy with bilateral macular edema for which ophthalmology referral requested. Plan: ? Continue glargine 20 units daily ? Follow-up with optometry on 02/01/2025 ? Referral for ophthalmology sent (5) Dyslipidemia (high LDL; low HDL): Status: Acute Plan: ? Atorvastatin 40 mg daily Orders: Referrals Ophthalmology E11.3599 - Type 2 diabetes mellitus with proliferative diabetic retinopathy without macular edema, unspecified eye Additional Assessment Attending note: I, Thomas De La Rosa MD, attest that I was physically present for the marinelli portions of the service and evaluated the patient with the resident and I reviewed and discussed the case with the resident and agree with the resident's findings and plans of care as documented above. Thomas De La Rosa MD Physician Billing Established Patient Established Patient: E/M Level 3-CPT 47988 Office Procedures [facility] Level of Care Nursing/Assessment Patient Status: Established Patient Nursing Assessment/Reassessment: Medication Reconciliation, Update PMH in EMR and Vital Signs Coordination of Care: Complex Care and Chronic Disease 1-5, Consent,records obtained, informed consent, Education Simp Pt/Fam, 1 Ins Authorization, Ref for ancillary service and Staff clarify orders Established Patient Charge Established Patient Point Assignment: 120 Established Patient Point Charge: Level 4 (120-155)
== END 2024-11-09 12:14 | disposition home or self-care (01) ==
LOC: HODAHC 11:10
PROVIDERS: Supervising Provider Internal Medicine
DX: G35 Multiple sclerosis (principal); I10 Essential (primary) hypertension; Z79.4 Long term (current) use of insulin; I63.89 Other cerebral infarction; E78.5 Hyperlipidemia, unspecified; E11.3513 Type 2 diabetes mellitus with proliferative diabetic retinopathy with macular edema, bilateral
CPT/HCPCS: 99214; G0463

== ENCOUNTER 2024-12-21 08:46 | Outpatient (AMB) | payer MEDICAID, SELFPAY ==
[2024-12-21 09:09] VITALS: BP 139/87; PULSE 96; RESP 18; TEMP 36.6; O2SAT 98; BMI 29.0
--- NOTE | 2024-12-21 09:09 | PD.RESCLINIC ---
Vital Signs 12/21/24 09:09 Height 1.8 m Height Method Stated Weight 94.064 kg Weight Measurement Method Standing Scale BMI 29.0 BP 139/87 H Blood Pressure Source Automatic Cuff Blood Pressure Location Right Upper Arm Position Sitting Respiration 18 Pulse 96 Pulse Source Monitor Temp 97.8 F Temp Source Oral Pulse Oximetry (%) 98 Oxygen Delivery Method Room Air Allergies/Meds Allergies & Medications Allergies No Known Allergies Allergy (Verified 12/21/24 09:10) Medication Reconciliation amlodipine 10 mg tablet 10 mg PO QDAY #30 tabs 09/20/24 [Rx Confirmed 12/21/24] atorvastatin 40 mg tablet 40 mg PO QDAY #30 tabs 09/20/24 [Rx Confirmed 12/21/24] clopidogrel 75 mg tablet (Plavix) 75 mg PO QDAY #30 tabs 09/20/24 [Rx Confirmed 12/21/24] lisinopril 20 mg tablet 20 mg PO QDAY #30 tabs 09/20/24 [Rx Confirmed 12/21/24] pen needle, diabetic 29 gauge x 1/2 #100 ea 09/20/24 [Rx Confirmed 12/21/24] pen needle, diabetic 29 gauge x 1/2 (Pen Needle) #100 ea 09/20/24 [Rx Confirmed 12/21/24] blood-glucose sensor (FreeStyle Hector 3 Plus Sensor device) #2 ea 12/05/24 [Rx Confirmed 12/21/24] carvedilol 3.125 mg tablet (Coreg) 3.125 mg PO BID #60 tabs 12/05/24 [Rx Confirmed 12/21/24] insulin glargine 100 unit/mL (3 mL) subcutaneous pen 20 unit (0.2 mL) subcut QPM #15 mL 12/05/24 [Rx Confirmed 12/21/24] lancets #200 ea 12/21/24 [Rx] MA Intake Visit Data Collection New Patient or Established: Established Patient (seen at [facility] within 3 years) Seen by Clinical Staff ONLY (RN/MA): No Pain Present Currently: No Pain scale:: 0 Pain Scale Used: Deleon-Whipple/Numerical PCP or OBGYN visit in last 3 months: Yes Do You Feel Safe at Home: Yes Authorities Contacted: N/A Smoking Status Smoking Status: Never smoker Immunization / Flu Flu Vaccine in the Last 12 Months: No Flu Vaccine Exclusion Criteria: No Exclusion Criteria Past Medical History Past Medical History NEUROLOGIC: Positive Transient Ischemic Attacks (TIA) CARDIAC: Positive Hypertension (pt states found out a few days ago); Negative Congestive Heart Failure RESPIRATORY: Negative Chronic Obstructive Pulmonary Disease (COPD) GENITOURINARY: Negative Renal Disease ENDOCRINE: Negative Diabetes Mellitus Type 1 or Diabetes Mellitus Type 2 Social History SMOKING STATUS: Smoking status: Never smoker ALCOHOL: Alcohol Intake: Never HOUSING: Housing: Apartment LIVES WITH: Lives With: Alone Patient Portal Questionaires Social History Living Situation History Housing: Apartment Tobacco History Smoking Status: Never smoker Alcohol History Alcohol Intake: Never Domestic Abuse History Do You Feel Safe at Home: Yes Review of Systems Report any current symptoms Only answer those that you have currently: Past Medical History Past Medical History Have you ever been diagnosed with any of the following: Neurological Problems Transient Ischemic Attacks (TIA): Yes Cardiology Problems Congestive Heart Failure: No Hypertension: Yes (pt states found out a few days ago) Respiratory Problems Chronic Obstructive Pulmonary Disease (COPD): No Genital/Urinary Problems Renal Disease: No Endocrine Problems Diabetes Mellitus Type 1: No Diabetes Mellitus Type 2: No History of Present Illness HPI Jak Bueno is a 49-year-old male with history of history of stroke (multiple acute infarcts), suspicion for demyelinating disease, hypertension, type 2 diabetes mellitus on insulin who presents to the [facility] for follow-up. He was discharged from [facility] on 09/20/2024 after undergoing CVA workup after experiencing right hand weakness and difficulty finding words. Noted to have SBP of 200 A1c of 12% during hospitalization. MRI brain showed multiple acute infarcts in the left occipital lobe, left caudate nucleus, left and parietal lobe. Neurologist, Dr. Olivia, followed-up with patient while in hospital and was concerned for demyelinating disease and LP/CSF study results have come back consistent with multiple sclerosis. He presents to [facility] for follow-up. Overall he states that he is doing well but does endorse having difficulty speaking. He denies any slurred speech, headaches, numbness or tingling, or dysphagia associated with this but does state that it is just hard to get words out. Also endorses difficulty with balance. He went to Dr. Olivia's office and states that his appointment is set for July 2025. Will reach out to Dr. Olivia to see if she has any recommendations prior to his appointment. Otherwise, CGM shows GMI of 6.6%, TIR 85% within last 3 months. States his average blood pressure is 120/75. Review of Systems Review of Systems Systems Reviewed: All systems reviewed, normal except as documented Objective/Exam Narrative Physical exam: General: AOx3, no acute distress, able to speak full sentences HEENT: NC/AT, mucous membranes moist, bilateral sclera anicteric Cardiovascular: regular rate and rhythm, S1/S2 present, no murmurs appreciated Pulmonary: clear to auscultation bilaterally, no rales/rhonchi/wheezes Abdominal: soft, non-tender, non-distended, no rebound/guarding, normal bowel sounds present Musculoskeletal: normal ROM, no peripheral edema Skin: warm and dry, intact, no rashes Neuro: - CN II-XII intact, no focal deficits - Strength 5/5 in upper and lower extremities bilaterally Assessment & Plan Diagnosis / Problem List (1) Multiple sclerosis with acute neurologic event: Status: Acute Assessment & Plan: LP studies show elevated protein, presence of oligoclonal bands, CSF/serum IgG index of 1.3, and elevated IgG synthesis rate. Endorses blurry vision but no eye pain, negative Lhermitte's sign. Lately endorses difficulty with balance as well as difficulty with speaking. Plan: ? Referral sent to neurology for follow-up and management ? Reached out to neurology for recommendations prior to appointment in July 2025 (2) Cerebrovascular accident: Status: Acute Qualifiers: CVA mechanism: other Qualified Code(s): I63.89 - Other cerebral infarction Assessment & Plan: Admitted on 09/19/2024 for CVA. Head and neck CTA showed 90% stenosis of M1 segment left middle cerebral artery. MRI of the brain showed multiple acute infarcts in the left occipital lobe, left caudate nucleus, left parietal lobe. Plan: ? Referral sent to neurology ? Continue to manage comorbidities (hypertension, diabetes, dyslipidemia) ? Plavix 75 mg p.o. daily (3) Hypertension: Status: Acute Qualifiers: Hypertension type: primary hypertension Qualified Code(s): I10 - Essential (primary) hypertension Assessment & Plan: Emphasized importance of monitoring blood pressures at home in order to appropriately titrate his medications and manage his risk factors for future strokes. Blood pressure well-controlled at this time and will continue with current management. Plan: ? Lisinopril 20 mg daily ? Amlodipine 10 mg daily ? Coreg 3.125 mg twice daily (4) Type 2 diabetes mellitus: Status: Acute Qualifiers: Diabetes mellitus complication detail: with diabetic retinopathy Diabetes mellitus complication status: with ophthalmic complications Diabetes mellitus jail insulin use: without continuous churn buttermaker use Diabetes mellitus macular edema: with macular edema Diabetic retinopathy severity: with proliferative retinopathy Laterality: bilateral Qualified Code(s): E11.3513 - Type 2 diabetes mellitus with proliferative diabetic retinopathy with macular edema, bilateral Assessment & Plan: A1c of 12% on 09/19/2024. CGM shows GMI of 6.6%, TIR 85% within last 3 months. Will continue with 20 units glargine and hold off on oral medications and can consider starting on next visit. Optometry visit showed proliferative diabetic retinopathy with bilateral macular edema for which ophthalmology referral requested. Plan: ? Continue glargine 20 units daily ? Follow-up with optometry on 02/01/2025 ? Referral for ophthalmology sent ? Follow-up A1c (5) Dyslipidemia (high LDL; low HDL): Status: Acute Plan: ? Atorvastatin 40 mg daily Additional Assessment Attending note: I, Thomas De La Rosa MD, attest that I was physically present for the marinelli portions of the service and evaluated the patient with the resident and I reviewed and discussed the case with the resident and agree with the resident's findings and plans of care as documented above. Thomas De La Rosa MD Physician Billing Established Patient Established Patient: E/M Level 3-CPT 35730 Office Procedures [facility] Level of Care Nursing/Assessment Patient Status: Established Patient Nursing Assessment/Reassessment: Medication Reconciliation, Update PMH in EMR and Vital Signs Coordination of Care: Complex Care and Chronic Disease 1-5, Education Complex Pt/Fam, Results/Orders obtained and Staff clarify orders Established Patient Charge Established Patient Point Assignment: 90 Established Patient Point Charge: Level 3 (80-115)
== END 2024-12-21 09:45 | disposition home or self-care (01) ==
LOC: HODAHC 08:46
PROVIDERS: Supervising Provider Internal Medicine
DX: G35 Multiple sclerosis (principal); I10 Essential (primary) hypertension; E11.9 Type 2 diabetes mellitus without complications; Z79.4 Long term (current) use of insulin; E78.5 Hyperlipidemia, unspecified; I69.328 Other speech and language deficits following cerebral infarction; I69.398 Other sequelae of cerebral infarction; R26.89 Other abnormalities of gait and mobility
CPT/HCPCS: 99213; G0463

== ENCOUNTER 2025-02-01 14:36 | Emergency (ER) | payer MEDICAID, SELFPAY ==
[2025-02-01 14:38] VITALS: BP 150/100; PULSE 111; RESP 19; TEMP 37.4; O2SAT 100
[2025-02-01 14:59] VITALS: PULSE 78; O2SAT 96; BMI 30.4
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
[2025-02-01] MEDS: KETOROLAC INJ 30 MG/ML VIAL 15 MG IM (15:40)
[2025-02-01 16:23] VITALS: BP 122/77; PULSE 78
== END 2025-02-01 18:18 | disposition home or self-care (01) ==
PROVIDERS: Emergency Provider Family Medicine; PCP Physician Assistant
DX: S20.219A Contusion of unspecified front wall of thorax, initial encounter (principal); S39.012A Strain of muscle, fascia and tendon of lower back, initial encounter; E11.9 Type 2 diabetes mellitus without complications; I10 Essential (primary) hypertension; V89.2XXA Person injured in unspecified motor-vehicle accident, traffic, initial encounter; Y92.410 Unspecified street and highway as the place of occurrence of the external cause; Z79.02 Long term (current) use of antithrombotics/antiplatelets; Z79.4 Long term (current) use of insulin
CPT/HCPCS: 71046; 72100; 99283; J1885

== ENCOUNTER 2025-02-02 10:51 | Emergency (ER) | payer MEDICAID, SELFPAY ==
[2025-02-02 10:53] VITALS: BP 150/100; PULSE 119; RESP 16; TEMP 37.6; O2SAT 95
[2025-02-02 10:57] VITALS: PULSE 118; RESP 16; O2SAT 98
[2025-02-02 11:00] VITALS: BMI 29.2
[2025-02-02] MEDS: METOCLOPRAMIDE 5 MG TABLET 10 MG PO (11:36)
[2025-02-02] MEDS: HYDROcodone/APAP 5/325 TABLET 1 TAB PO ×2 (11:36→12:21)
[2025-02-02] MEDS: KETOROLAC INJ 60 MG/2 ML VIAL IM (11:36)
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
== END 2025-02-02 12:27 | disposition home or self-care (01) ==
LOC: SERX 12:29
PROVIDERS: Emergency Provider Nurse Practitioner Family; PCP Family Medicine
DX: S39.92XA Unspecified injury of lower back, initial encounter (principal); V89.2XXA Person injured in unspecified motor-vehicle accident, traffic, initial encounter; Y92.410 Unspecified street and highway as the place of occurrence of the external cause; Z79.02 Long term (current) use of antithrombotics/antiplatelets; Z79.4 Long term (current) use of insulin; E11.9 Type 2 diabetes mellitus without complications
CPT/HCPCS: 96372; 99282; J1885; A9270